=== PATIENT | female | born 1960 | race Caucasian/White ===

== ENCOUNTER 2024-02-12 11:39 | Inpatient (IN) | payer BC, SELFPAY ==
[2024-02-12] VITALS (12 sets, daily range): BP systolic 109–156; BP diastolic 48–72; BMI 35.9; BMI 35.5
[2024-02-12 05:35] LABS: % Basophils 0.2 % (0-2); % Eosinophils 0.7 % (0-6); % Immature Granulocytes 0.3 % (0-0.5); % Lymphocytes 7.5 % (20.5-51.1); % Monocytes 1.9 % (1.7-9.3); % Neutrophils 89.4 % (42.2-75.2); Absolute Eosinophils 0.1 10^3/uL (0-0.7); Absolute Lymphocytes 0.9 10^3/uL (1.2-3.4); Absolute Monocytes 0.2 10^3/uL (0.1-0.6); Absolute Neutrophils 10.8 10^3/uL (1.4-6.5); Hematocrit 42.8 % (37.0-47.0); Hemoglobin 14.5 g/dL (12.0-16.0); Mean Corp Hgb Conc. 33.9 g/dL (33.0-37.0); Mean Corpuscular Hgb 29.4 pg (27.0-31.0); Mean Corpuscular Volume 86.6 fL (81.0-99.0); Mean Platelet Volume 9.4 fL (7.4-10.4); Nucleated Red Blood Cells % 0 %; Platelet Count 211 10^3/uL (130-400); Red Blood Cell Count 4.94 10^6/uL (4.20-5.40); Red Cell Dist. Width 13.7 % (11.5-14.5); White Blood Cell Count 12.1 10^3/uL (4.8-10.8)
[2024-02-12] MEDS: MAALOX 40 PO (05:43)
[2024-02-12] MEDS: PROTONIX IV 40 MG IV (05:44)
[2024-02-12 06:04] LABS: ALT (SGPT) 438 U/L (0-35); AST (SGOT) 738 U/L (14-36); Albumin 4.3 g/dl (3.5-5.0); Alkaline Phosphatase 191 U/L (38-126); Blood Urea Nitrogen 22 mg/dl (7-17); Calcium 9.6 mg/dl (8.4-10.2); Carbon Dioxide 29 mmol/L (22-30); Chloride 104 mmol/L (98-107); Estimated Creatinine Clearance 77 ml/min; Glucose 115 mg/dl (70-99); Lipase 122 U/L (23-300); Potassium 4.4 mmol/L (3.5-5.1); Sodium 143 mmol/L (135-145); Total Bilirubin 2.2 mg/dl (0.2-1.3); Total Protein 7.1 g/dl (6.3-8.2); eGFR > 60.00
--- NOTE | 2024-02-12 06:11 | ED.GENMED ---
History of Present Illness
<Raven Livingston DO - Last Filed: 02/12/24 06:34>
General
Chief Complaint: Chest Pain
Source: patient and previous hospital records (Hospitalization 1 year ago for acute diverticulitis with sepsis.)
Exam Limitations: none
Time Seen by Provider: 02/12/24 05:09
Nursing documentation reviewed up to this point in time: agreed with
History of Present Illness
History of Present Illness:
This is a 63-year-old woman with history of diverticulitis having 1 episode of acute sigmoid diverticulitis requiring overnight hospitalization 1 year ago. She has remote history of cholecystectomy.
She presents with abrupt onset of lower substernal/epigastric pain that woke her from sleep at 330 this morning. Epigastric pain radiates to her back and mildly to her neck accompanied with nausea. She had very similar episode of epigastric and
lower substernal pain waking her from sleep 24 hours ago. At that time she took a dose of antacid as well as ibuprofen. Questionable mild relief but she admits to overall not feeling well throughout the day yesterday. She has not had a fever nor
chills, no cough no shortness of breath.
She admits to rare but much milder similar episodes in the past but not prolonged as yesterday and this morning.
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
Past History
<Raven Livingston DO - Last Filed: 02/12/24 06:34>
Past History
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
ED Past Surgical History: Cholecystectomy, and Other (Breast lump removal)
Social History
Tobacco: Non-smoker
Alcohol: None
Drug: None
Personal:
Living: with family
Employment: Employed
Family History
Family History: CAD (Father with history of CAD/MIs in his 40s)
Phy Exam
<Raven Livingston DO - Last Filed: 02/12/24 06:34>
Physical Exam
Physical Exam:
GENERAL: 63-year-old woman appears her stated age, awake and alert, appears in mild distress related to pain. Easily communicative.
EYE: anicteric
NECK: Supple, nontender, no meningismus, no significant adenopathy.
ENT: oral mucosa is moist. No rhinorrhea.
CARDIAC: Regular rate and rhythm. no murmur.
LUNGS: Clear breath sounds bilaterally, no acute respiratory distress, no wheezes/rales/rhonchi
ABDOMEN: Soft, nondistended, moderate tenderness epigastric region as well as mild tenderness right upper quadrant, no r/g, no cvat. normoactive BS.
NEUROLOGICAL: Alert and oriented x3, no focal neuro deficits.
SKIN: Warm and dry, normal color, skin intact. No rash.
MUSCULOSKELETAL: No C/C/E. peripheral pulses are full and equal b/l. No palpable tenderness.
PSYCH: Normal and appropriate interaction.
Scores
<Raven Livingston DO - Last Filed: 02/12/24 06:34>
Heart Score for Chest Pain Patients
STEMI patient?: No
History: Slightly or Non-Suspicious
ECG: Normal
Age: >45 - <65 years
Risk Factors: No Risk Factors
Troponin: </= Normal Limit
Heart Score for Chest Pain Patients: 1
Heart Score Risk: 2.5% MACE over next 6 weeks
<Deandre Silverman DO - Last Filed: 02/12/24 09:48>
Heart Score for Chest Pain Patients
Heart Score for Chest Pain Patients: 1
Heart Score Risk: 2.5% MACE over next 6 weeks
Course
<Raven Livingston DO - Last Filed: 02/12/24 06:34>
Orders/Labs/Results
Orders:
Orders
02/12/24 04:56
Electrocardiogram (*1) Urgent
Reason for Study: Chest Pain
EKG- Treatment ONCE
02/12/24 05:25
Complete Blood Count/With Diff Urgent
Comprehensive Metabolic Panel Urgent
Lipase Urgent
Troponin I Urgent
02/12/24 05:28
Pantoprazole [Protonix IV] 40 mg IV NOW STA
02/12/24 05:41
Mag Hydrox/Al Hydrox/Simeth [Maalox] 30 ml .ROUTE .STK-MED ONE
Phenobarb/Hyoscy/Atropine/Scop [] 10 ml .ROUTE .STK-MED ONE
02/12/24 05:42
Mag Hydrox/Al Hydrox/Simeth [Maalox] 30 ml Phenobarb/Hyoscy/Atropine/Scop [] 10 ml PO NOW
02/12/24 06:12
0.9% Sodium Chloride 1000 ml [Nss] 1,000 ml IV BOLUS
HYDROmorphone [Dilaudid] 0.5 mg IV NOW STA
Ondansetron Injectable [Zofran] 4 mg IV NOW STA
02/12/24 06:16
US Abdomen Complete/Upper Urgent
Comment:
Reason For Exam: upper abd pain, elevated LFT's-hx florinda
02/12/24 07:56
Ketorolac [Toradol] 15 mg IV NOW STA
02/12/24 08:46
CT Abd/Pel (IV only)-DH only Urgent
Comment:
Reason For Exam: elev LFT pain RUQ
Abnormal Lab Results
02/12/24
05:25
WBC 12.1 H 10^3/uL
(4.8-10.8)
Absolute Neuts (auto) 10.8 H 10^3/uL
(1.4-6.5)
Absolute Lymphs (auto) 0.9 L 10^3/uL
(1.2-3.4)
Neutrophils % 89.4 H %
(42.2-75.2)
Lymphocytes % 7.5 L %
(20.5-51.1)
BUN 22 H mg/dl
(7-17)
Glucose 115 H mg/dl
(70-99)
Total Bilirubin 2.2 H mg/dl
(0.2-1.3)
AST 738 H* U/L
(14-36)
ALT 438 H U/L
(0-35)
Alkaline Phosphatase 191 H U/L
(38-126)
02/12/24 05:25
02/12/24 05:25
Vital Signs
Initial and Last Documented VS:
Initial Vital Signs
Pulse Resp Pulse Ox
82 20 100
02/12/24 05:03 02/12/24 05:03 02/12/24 05:03
Last Documented Vital Signs
Temp Pulse Resp BP Pulse Ox
98.9 F 81 17 138/54 88
02/12/24 05:09 02/12/24 06:00 02/12/24 06:00 02/12/24 07:30 02/12/24 07:08
<Deandre Silverman, - Last Filed: 02/12/24 09:48>
Orders/Labs/Results
Orders:
Orders
02/12/24 04:56
Electrocardiogram (*1) Urgent
Reason for Study: Chest Pain
EKG- Treatment ONCE
02/12/24 05:25
Complete Blood Count/With Diff Urgent
Comprehensive Metabolic Panel Urgent
Lipase Urgent
Troponin I Urgent
02/12/24 05:28
Pantoprazole [Protonix IV] 40 mg IV NOW STA
02/12/24 05:41
Mag Hydrox/Al Hydrox/Simeth [Maalox] 30 ml .ROUTE .STK-MED ONE
Phenobarb/Hyoscy/Atropine/Scop [] 10 ml .ROUTE .STK-MED ONE
02/12/24 05:42
Mag Hydrox/Al Hydrox/Simeth [Maalox] 30 ml Phenobarb/Hyoscy/Atropine/Scop [] 10 ml PO NOW
02/12/24 06:12
0.9% Sodium Chloride 1000 ml [Nss] 1,000 ml IV BOLUS
HYDROmorphone [Dilaudid] 0.5 mg IV NOW STA
Ondansetron Injectable [Zofran] 4 mg IV NOW STA
02/12/24 06:16
US Abdomen Complete/Upper Urgent
Comment:
Reason For Exam: upper abd pain, elevated LFT's-hx florinda
02/12/24 07:56
Ketorolac [Toradol] 15 mg IV NOW STA
02/12/24 08:46
CT Abd/Pel (IV only)-DH only Urgent
Comment:
Reason For Exam: elev LFT pain RUQ
Abnormal Lab Results
02/12/24
05:25
WBC 12.1 H 10^3/uL
(4.8-10.8)
Absolute Neuts (auto) 10.8 H 10^3/uL
(1.4-6.5)
Absolute Lymphs (auto) 0.9 L 10^3/uL
(1.2-3.4)
Neutrophils % 89.4 H %
(42.2-75.2)
Lymphocytes % 7.5 L %
(20.5-51.1)
BUN 22 H mg/dl
(7-17)
Glucose 115 H mg/dl
(70-99)
Total Bilirubin 2.2 H mg/dl
(0.2-1.3)
AST 738 H* U/L
(14-36)
ALT 438 H U/L
(0-35)
Alkaline Phosphatase 191 H U/L
(38-126)
02/12/24 05:25
02/12/24 05:25
Vital Signs
Initial and Last Documented VS:
Initial Vital Signs
Pulse Resp Pulse Ox
82 20 100
02/12/24 05:03 02/12/24 05:03 02/12/24 05:03
Last Documented Vital Signs
Temp Pulse Resp BP Pulse Ox
98.9 F 81 17 138/54 88
02/12/24 05:09 02/12/24 06:00 02/12/24 06:00 02/12/24 07:30 02/12/24 07:08
<Raven Livingston DO - Last Filed: 02/12/24 06:34>
MDM/Problems Addressed
Differential Diagnosis Includes:
Concern for acute GERD, gastritis, pancreatitis,common bile duct stone, ACS. No significant risk factors for ASCVD, no history of hypertension, aortic dissection is unlikely.
EKG is reassuring, no acute ST-T wave abnormalities and unchanged from previous.
Will check labs and trial an IV dose of Protonix and GI cocktail.
Will consider imaging depending on clinical course and lab results.
Chronic conditions affecting care: Previous abdomnial surgery (Cholecystectomy)
<Raven Livingston DO - Last Filed: 02/12/24 06:34>
*Pulse Oximetry
Patient hypoxic: no
*EKG
Interpreted by ED Provider?: Yes
Comparison EKG: no changes (Unchanged from previous October 2022)
Rate: normal
Rhythm: sinus
[employer]: normal axis
Interval: normal interval
QRS Pattern: normal QRS
Ischemia: non-specific ST changes
*Powertrain Design Engineer Interpretation
Rate: normal
Interpretation: normal
Rhythm: sinus
*Critical Care Note
Total Time (30-74mins, 75-104mins- exclusive of procedures): Not Applicable
<Deandre Silverman DO - Last Filed: 02/12/24 09:48>
*Radiology
Radiology exam reviewed: radiology read reviewed (Ultrasound showed possible dilated common bile duct. CT was rather unremarkable.)
<Raven Livingston DO - Last Filed: 02/12/24 06:34>
Update Note
Update Note:
Patient has had no relief after GI cocktail.
Labs are remarkable for significantly elevated LFTs as well as elevated T. bili 2.2. Elevated alkaline phosphatase 191. Normal lipase.
Troponin is normal.
Significant concern for common bile duct stone. Will medicate for pain and nausea, initiate IV fluids and will check abdominal ultrasound.
<Deandre Silverman DO - Last Filed: 02/12/24 09:48>
Update Note
Update Note:
Patient has had no relief after GI cocktail.
Labs are remarkable for significantly elevated LFTs as well as elevated T. bili 2.2. Elevated alkaline phosphatase 191. Normal lipase.
Troponin is normal.
Significant concern for common bile duct stone. Will medicate for pain and nausea, initiate IV fluids and will check abdominal ultrasound.
Unsure the etiology of the patient's elevated LFTs and bilirubin. Patient in all likelihood needs an MRI/MRCP. Patient will be admitted.
ED Attending Note
<Raven Livingston DO - Last Filed: 02/12/24 06:34>
-
Portions of this chart may have been created with voice recognition software.� Occasional wrong word or��sound alike� substitutions may have occurred due to the inherent limitations of voice recognition software.
Discharge Plan
Departure
Patient Disposition: Admit
Date of Disposition: 02/12/24
Time of Disposition: 09:46
Admit to: Med/Surg
Presentation/result/management discussed w/ accepting MD/DO: Hospitalist
Patient with high blood pressure during this ER visit?: No
Condition: Fair
Covid-19: Not Applicable
Discharge Problem:
Midepigastric abdominal pain, Elevated LFTs
Prescriptions:
No Action
cholecalciferol (vitamin D3) [Vitamin D3] 25 mcg (1,000 unit) Tablet
50 mcg PO DAILY
valacyclovir 500 mg Tablet
500 mg PO DAILY
Fish Oil Capsule
1,000 mg PO NOON
red yeast rice 600 mg Tablet
1,200 mg PO BID
Theragen Tablet
1 tab PO NOON
calcium carbonate [Tums] 200 mg calcium (500 mg) Tablet,Chewable
400 mg PO DAILYPRN PRN (Reason: INDIGESTION)
ibuprofen [Advil] 200 mg Tablet
200 mg PO Q6HPRN PRN (Reason: MILD PAIN)
Referrals:
Nhi Arana CRNP [Family Provider] -
Interventions
Interventions:
*Risk Screen - Suicide Last Done: 02/12/24 04:59
*General Assessment Last Done: 02/12/24 05:35
*Neglect/Abuse Screening Last Done: 02/12/24 04:59
ED- Fall Risk Assessment Last Done: 02/12/24 05:35
*ED COVID-19 Vaccine History Last Done: 02/12/24 04:59
ED- Cardiac Assessment Last Done: 02/12/24 05:35
Discharge Date and Time
Print Language: MALAYSIAN
[2024-02-12 06:13] LABS: Troponin I < 0.012 ng/ml
[2024-02-12] MEDS: ZOFRAN 4 MG IV ×2 (06:20→16:29)
[2024-02-12] MEDS: NSS 1000 IV ×2 (06:21→10:52)
[2024-02-12] MEDS: DILAUDID 0.5 MG IV (06:21)
[2024-02-12] MEDS: TORADOL 15 MG IV (08:14)
--- NOTE | 2024-02-12 11:08 | HPS.HSE ---
Family Physician
-
Family Physician: Nhi Arana
Chief Complaint
-
epigastric pain
History of Present Illness
63yo F with PMHx of fatty liver, choledocholithiasis s/p cholecystectomy came with 1 day of transverse abdominal pain radiating to lower chest and back. Pain appeared 1 day ago and then resolved, but later reoccured. Associated with diaphoresis.
found elevated LFT and bad.US with mild CBD dilation, however CT abd without acute hepatobiliary findings.
Medical History
Past Medical History
Past Medical History: Reports None
Past Surgical History: Reports Cholecystectomy
Social History
Tobacco: Non-smoker
Alcohol: None
Drug: None
Family History
Family History: Not pertinent
Allergies / Home Medications
Allergies reflects when Allergies were last updated in [facility].
Home Medications with original date entered in [facility]
Allergy/Medication List:
Allergies
Allergy/AdvReac Type Severity Reaction Status Date / Time
Sulfa (Sulfonamide Allergy Rash Verified 02/12/24 04:59
Antibiotics)
tramadol Allergy Unknown Verified 02/12/24 04:59
Home Medications
cholecalciferol (vitamin D3) 25 mcg (1,000 unit) tablet (Vitamin D3) 50 mcg PO DAILY Supplement 11/15/22
calcium carbonate (Tums) 400 mg PO DAILYPRN PRN INDIGESTION 02/12/24
ibuprofen 200 mg tablet (Advil) 200 mg PO Q6HPRN PRN MILD PAIN 02/12/24
omega-3 fatty acids 1,000 mg PO NOON 02/12/24
red yeast rice 600 mg tablet 1,200 mg PO BID 02/12/24
therapeutic multivitamin 1 tab PO NOON 02/12/24
valacyclovir 500 mg tablet 500 mg PO DAILY 02/12/24
Review of Systems
-
History Source: Patient
A 12 point ROS was completed and negative except as noted: Yes
Abdomen/GI: Reports See HPI
Physical Exam
Vital Signs
Vital Signs
Temp Pulse Resp BP Pulse Ox
98.9 F 81 17 138/54 88
02/12/24 05:09 02/12/24 06:00 02/12/24 06:00 02/12/24 07:30 02/12/24 07:08
Physical Exam
General: No Apparent Distress
HEENT: NormoCephalic, Anicteric and Moist mucous membranes
Respiratory: Clear
Cardiac: S1/S2 and Regular Rhythm; No Murmur
GI: Soft
Musculoskeletal: No Clubbing, No Cyanosis and No Edema
Skin: Warm; No Dry, Rash or Jaundice
Neuro: Awake, Alert, Oriented and AO x 3
Hematologic/Lymphatic: No Lymphadenopathy
Psych: Calm
Laboratory Results
-
02/12/24 05:25
02/12/24 05:25
Laboratory Results
Total Bilirubin 2.2 mg/dl (0.2-1.3) H 02/12/24 05:25
AST 738 U/L (14-36) H* 02/12/24 05:25
ALT 438 U/L (0-35) H 02/12/24 05:25
Alkaline Phosphatase 191 U/L (38-126) H 02/12/24 05:25
Troponin I < 0.012 ng/ml 02/12/24 05:25
Lipase 122 U/L (23-300) 02/12/24 05:25
Data Reviewed
-
CT Scan: Report Reviewed by me
Ultrasound: Report Reviewed by me
Lab Data: Labs Reviewed by me
Impression/Plan
-
A/P:
#Epigastric pain radiating to the chest, concern for choledocholithiasis, early cholangitis
#Elevated LFT
EKG without ST changes of TWI concerning for ACS. Reasonable to cont serial troponin
CTA chest stat to r/o aortic pathology due to atypical nature of the pain
Patient declined alcohol or tylenol usage
check hepatitis panel
NPO and advance diet as tolerated, IVF
MRCP
check CPK
Follow LFT
Zosyn
PPI
#L renal cysts
#R renal structure, exophitic, too small to characterize
MRI abd as outpatient
#DIverticulosis w/o diverticulitis
high fiber diet
DVT ppx on lovenox
Full code
I have spent at least 78min reviewing the chart, test results, communication with consultants and direct patient care
[2024-02-12 11:27] LABS: Creatine Phosphokinase 79 U/L (30-135)
--- NOTE | 2024-02-12 12:00 | CM ---
CM chart reviewed. Patient is here for possible choledocholithiasis, early cholangitis. Has elevated LFTs. CM introduced self and role. was also in room. Patient is independent. Does not own any DME. She drives. Patient's will
provide transportation once she is disharged from the hospital. Zosyn is ordered. She denied any +SDOHs. She is a retired [employer] teacher for 25 years. She lives in a multi-level home. 2 steps to enter. She uses [facility] as her PCP
and [facility] in [place] as her pharmacy.
ANTICIPATED DISCHARGE DISPO: Discharge to home with once medically cleared.
--- NOTE | 2024-02-12 13:24 | CON.GI ---
Addendum entered and electronically signed by Helena Estrada DO 02/12/24 15:34:
The patient was seen and examined by me independently in collaboration with the nurse practitioner.
Past medical history/social history/medications/allergies/family history reviewed.
Lab data and imaging data reviewed.
Guerita is a 63 y.o. female w/ pmhx uterina ca, hx cholecystectomy c/b retained CBD stone s/p CBD stent placement (presumably sphincterotomy as well) performed >20 years ago at [facility] for endometrial Ca, colon polyps, hx of diverticulitis admitted
with substernal chest pain and epigastric discomfort, labs significant for elevated liver enzymes and imaging concerning, but not definitive for choledocholithiasis. She was ruled out for ACS and PE with CT Angio.
WBC 12.1; bili 2.2, AST 738, ALT 438; alk phos 191; lipase 122
--CT A/P: prior cholecystectomy. No biliary ductal dilatation
--Abdominal US: Slightly distended common bile duct (8 mm), and questionable mild intrahepatic duct dilatation. Findings may be related to prior cholecystectomy.
--MRI/MRCP There is mild distention of the proximal to mid common bile duct. Distally, the common bile duct abruptly tapers. Cause for this is not identified on this exam. It could be related to postinflammatory or malignant distal common bile duct
stricture (particularly given the history of abnormal serum bilirubin). Approximate 5 tiny bright T2 signal foci in the pancreatic tail, possibly IPMN
I suspect she had a prior sphincterotomy at time of ERCP many years ago, so findings on MRI could reflect some papillary stenosis. Given discordant information on imaging but still obstructive pattern of liver enzymes, recommend proceeding with EUS
tomorrow, followed by ERCP, if choledocholithaisis is confirmed. Additionally, incidental finding of pancreatic cyst on MRI, likely IPMN, can be better evaluated at time of EUS.
Plan:
-NPO PMN, EUS +/- ERCP tomorrow with Dr. Torre
-okay for clears
-antiemetics, analgesia prn
Original Note:
Consultation
-
Date/Time Consultation Requested: 02/12/24 1030
Date/Time Consultation Performed: 02/12/24 1330
Requesting Provider: Hermelindo Ahumada MD
Performing Provider: FABRICE Freeman, Helena Estrada DO
Reason for Consultation: biliary obstruction
Medical History
Chief Complaint / HPI
Chief Complaint: chest/epigastric pain
History of Present Illness:
Pt is a 63yo with hx uterine CA, hyperlipidemia, prior florinda with post -op ERCP for stone removal with stent placement, ANDRIA for endometrial CA, colon polyps, diverticulitis presents with onset of chest/epigastric pain. On admission but WBC 12.1
with bili 2.2, AST 738, ALT 438, and alk phos 191. lipase 122 and neg troponin. On admission she had multiple diagnostic studies including CTA with no aneurysm or dissection, CT with diverticulosis, renal cysts no obstructive uropathy. US with
concern for CBD distention from prior colon CT no acute process or duct dilation and MRCP with distention of proximal to mid CBD distal tapering of unclear etiology. 5 tiny foci in panc tail concern for IPMN need follow up MRI 6-12 months.
At this time patient admits to onset of abdominal pain 02/10 in the a.m. She improved and then later that evening had mild recurrence. She then awoke at 3:30 AM on 02/11 with severe pain prompting evaluation in the emergency room. She admits
with the abdominal pain she also had some vomiting she was unclear if it was bilious. She was initially given Dilaudid without improvement. She was then given Toradol along with Zofran and antibiotics with some improvement. She otherwise denies
odynophagia GERD diarrhea constipation blood or black in stools. She does however admit to some change in the stool color which may have been related to contrast though the contrast was given IV she also admits some some back pain and tingling in
her arm.
Past Medical History
Past Medical History: Cancer (endometrial cancer), Hypercholesterolemia and Other (diverticulitis, cold sores with valtrex use, colon polyps, )
Past Surgical History: Cholecystectomy, , Gynecological (breast bx, D+C, ANDRIA) and Other (lumpectomy)
Social History
Tobacco: Non-Smoker
Alcohol: None
Drug: None
Personal:
Living: With Family
Employment: Retired
Family History
Family History: Reviewed & Not Pertinent
Allergies / Home Medications
Allergy/AdvReac Type Severity Reaction Status Date / Time
Sulfa (Sulfonamide Allergy Rash Verified 02/12/24 04:59
Antibiotics)
tramadol Allergy Unknown Verified 02/12/24 04:59
�Medication �Instructions �Recorded
cholecalciferol (vitamin D3) 25 50 mcg PO DAILY Supplement 11/15/22
mcg (1,000 unit) tablet (Vitamin
D3)
calcium carbonate (Tums) 400 mg PO DAILYPRN PRN INDIGESTION 02/12/24
ibuprofen 200 mg tablet (Advil) 200 mg PO Q6HPRN PRN MILD PAIN 02/12/24
omega-3 fatty acids 1,000 mg PO NOON 02/12/24
red yeast rice 600 mg tablet 1,200 mg PO BID 02/12/24
therapeutic multivitamin 1 tab PO NOON 02/12/24
valacyclovir 500 mg tablet 500 mg PO DAILY 02/12/24
Review of Systems
-
Constitutional: Reports Weight Loss ( 35 lbs intentional loss ) and Night Sweats
EENT: Reports No Symptoms
Respiratory: Reports No Symptoms
Cardiac: Reports No Symptoms
Abdomen/GI: Reports Abdominal Pain, Nausea and Vomiting
: Reports No Symptoms
Musculoskeletal: Reports No Symptoms
Skin: Reports No Symptoms
Neurological: Reports No Symptoms
Endocrine: Reports No Symptoms
Hematologic/Lymphatic: Reports No Symptoms
Vital Signs
Temp Pulse Resp BP Pulse Ox
98.9 F 91 19 115/48 91
02/12/24 05:09 02/12/24 08:30 02/12/24 08:30 02/12/24 08:30 02/12/24 08:30
Physical Exam
Exam
General: Well Developed, Well Nourished and No Apparent Distress
HEENT: Other (minimal jaundice)
Respiratory: Clear
Cardiac: Regular Rhythm
GI: Soft, Non Distended and Tender (minimal )
Musculoskeletal: No Clubbing and No Cyanosis
Skin: Warm and Dry
Neuro: Awake, Alert and AO x 3
Psych: Calm
Results
WBC 12.1 10^3/uL (4.8-10.8) H 02/12/24 05:25
Hgb 14.5 g/dL (12.0-16.0) 02/12/24 05:25
Hct 42.8 % (37.0-47.0) 02/12/24 05:25
MCV 86.6 fL (81.0-99.0) 02/12/24 05:25
Plt Count 211 10^3/uL (130-400) 02/12/24 05:25
Absolute Neuts (auto) 10.8 10^3/uL (1.4-6.5) H 02/12/24 05:25
Sodium 143 mmol/L (135-145) 02/12/24 05:25
Potassium 4.4 mmol/L (3.5-5.1) 02/12/24 05:25
Chloride 104 mmol/L (98-107) 02/12/24 05:25
Carbon Dioxide 29 mmol/L (22-30) 02/12/24 05:25
BUN 22 mg/dl (7-17) H 02/12/24 05:25
Creatinine 0.8 mg/dL (0.6-1.0) 02/12/24 05:25
Calcium 9.6 mg/dl (8.4-10.2) 02/12/24 05:25
Total Bilirubin 2.2 mg/dl (0.2-1.3) H 02/12/24 05:25
AST 738 U/L (14-36) H* 02/12/24 05:25
ALT 438 U/L (0-35) H 02/12/24 05:25
Alkaline Phosphatase 191 U/L (38-126) H 02/12/24 05:25
Lipase 122 U/L (23-300) 02/12/24 05:25
Diagnostic Image Results:
02/12/24 CT Abd/Pel (IV only)-DH only
No acute inflammatory process within the abdomen or pelvis.
Diverticulosis without acute diverticulitis. No bowel obstruction.
Stable renal cysts. No obstructive uropathy.
Prior cholecystectomy.
Mild hepatomegaly.
No intrahepatic or extrahepatic biliary ductal dilatation, as suggested on ultrasound.
02/12/24 US Abdomen Complete/Upper
Slightly distended common bile duct (8 mm), and questionable mild intrahepatic duct dilatation. Findings may be related to prior cholecystectomy. CT may be considered as initial step for further evaluation, followed by MRCP if indicated.
02/12/24 MRCP
There is mild distention of the proximal to mid common bile duct. Distally, the common bile duct abruptly tapers. Cause for this is not identified on this exam. It could be related to postinflammatory or malignant distal common bile duct stricture
(particularly given the history of abnormal serum bilirubin). Consider ERCP for further evaluation
Approximate 5 tiny bright T2 signal foci in the pancreatic tail. These are probably related to intraductal papillary mucinous neoplasia. Follow-up MRI abdomen/MRCP in 6-12 months recommended for reevaluation
No acute inflammatory process in the abdomen
02/12/24 CT Chest Angio W/wo Iv Contras
No aortic aneurysm or dissection.
Prior GI Procedures:
EGD: ? years ago wtih ERCP
ERCP 25 years ago for CBD stone
Colonoscopy: 12/2022- - One 7 mm polyp in the proximal sigmoid colon,
removed with a hot snare. Resected and retrieved.
- One 10 mm polyp in the distal sigmoid colon, removed
with a hot snare. Resected and retrieved.
- Diverticulosis in the sigmoid colon and in the
descending colon.
- Internal hemorrhoids.
- The examination was otherwise normal.
bx inflammatory polyp
Assessment / Plan
-
Pt is a 63yo with hx uterine CA, hyperlipidemia, prior florinda with post -op ERCP for stone removal with stent placement, ANDRIA for endometrial CA, colon polyps, diverticulitis presents with onset of chest/epigastric pain. On admission but WBC 12.1
with bili 2.2, AST 738, ALT 438, and alk phos 191. lipase 122 and neg troponin. On admission she had multiple diagnostic studies including CTA with no aneurysm or dissection, CT with diverticulosis, renal cysts no obstructive uropathy. US with
concern for CBD distention from prior colon CT no acute process or duct dilation and MRCP with distention of proximal to mid CBD distal tapering of unclear etiology. 5 tiny foci in panc tail concern for IPMN need follow up MRI 6-12 months.
-epigastric pain with increased LFT's
-MRCP with distention of proximal to mid CBD with distal tapering of unclear etiology
-tiny foci in panc tail ? IPMN
-hx florinda 25 years ago with post-op ERCP with stone removal and stents
other med problems:
-endometrial CA s/p hysterectomy
-hx colon polyps- inflammatory
-diverticulosis/diverticulitis
PLAN:
etiology of epigastric pain with rise in LFT's related to noted distal CBD narrowing- ? passed stone vs stricture with prior ERCP/stent, vs mass as MR done without contrast only vs other
reviewed with Dr. Estrada for EUS +/- ERCP
will need follow up MRI for multiple IPMN's and also for EUS tomorrow
trend labs
pain control
clear diet today- NPO in AM
hold lovenox add compression stocking
will follow
-
-
Thank you for consultation and allowing me to participate in the patient's care. Please call the artist relationship manager GI physician during the after hours with any questions or concerns.
[2024-02-12] MEDS: ZOSYN 50 IV ×2 (14:33→20:39)
[2024-02-12] MEDS: TORADOL 10 MG IV ×2 (16:29→22:38)
[2024-02-12 17:19] LABS: Urine Albumin Trace (Neg - Trace); Urine Bilirubin 1+ (Negative); Urine Character Clear (Clear); Urine Color Yellow; Urine Glucose Negative (Negative); Urine Ketone Negative (Negative); Urine Leukocyte Negative (Negative); Urine Nitrite Negative (Negative); Urine Occult Blood Negative (Negative); Urine Urobilinogen Negative (Neg - 1+)
[2024-02-12 18:20] LABS: Hepatitis B Surface Antigen Negative (Negative)
[2024-02-12 18:39] LABS: Hepatitis B Core Ab, Total Negative (Negative); Hepatitis B Surface Antibody Negative; Hepatitis C Antibody Negative (Negative)
[2024-02-12 18:57] LABS: Hepatitis A Antibody, Total Negative (Negative)
[2024-02-12] MEDS: TIGAN 200 MG IM (22:55)
[2024-02-13] VITALS (9 sets, daily range): BP systolic 108–150; BP diastolic 61–96
[2024-02-13] MEDS: ZOSYN 50 IV ×4 (02:34→21:12)
[2024-02-13] MEDS: NSS 1000 IV (02:40)
[2024-02-13 05:34] LABS: % Basophils 0.2 % (0-2); % Eosinophils 2.2 % (0-6); % Immature Granulocytes 0.2 % (0-0.5); % Lymphocytes 9.2 % (20.5-51.1); % Monocytes 7.4 % (1.7-9.3); % Neutrophils 80.8 % (42.2-75.2); Absolute Eosinophils 0.2 10^3/uL (0-0.7); Absolute Lymphocytes 0.9 10^3/uL (1.2-3.4); Absolute Monocytes 0.7 10^3/uL (0.1-0.6); Hematocrit 36.7 % (37.0-47.0); Hemoglobin 12.4 g/dL (12.0-16.0); Mean Corp Hgb Conc. 33.8 g/dL (33.0-37.0); Mean Corpuscular Hgb 29.4 pg (27.0-31.0); Mean Platelet Volume 9.5 fL (7.4-10.4); Nucleated Red Blood Cells % 0 %; Platelet Count 181 10^3/uL (130-400); Red Blood Cell Count 4.22 10^6/uL (4.20-5.40); Red Cell Dist. Width 13.9 % (11.5-14.5)
[2024-02-13 05:45] LABS: PT 15.7 Sec (11.4-14.6)
[2024-02-13 07:00] LABS: ALT (SGPT) 444 U/L (0-35); AST (SGOT) 354 U/L (14-36); Albumin 3.4 g/dl (3.5-5.0); Alkaline Phosphatase 213 U/L (38-126); Blood Urea Nitrogen 14 mg/dl (7-17); Calcium 8.6 mg/dl (8.4-10.2); Carbon Dioxide 22 mmol/L (22-30); Chloride 106 mmol/L (98-107); Estimated Creatinine Clearance 76 ml/min; Glucose 89 mg/dl (70-99); Sodium 141 mmol/L (135-145); Total Bilirubin 5.7 mg/dl (0.2-1.3); Total Protein 6.2 g/dl (6.3-8.2); eGFR > 60.00
--- NOTE | 2024-02-13 12:00 | W.PN.HOSP.TC ---
Today's Communication/Plan
-
See PN
Assessment / Plan
Assessment / Plan
63yo F with PMHx of fatty liver, choledocholithiasis s/p cholecystectomy came with 1 day of transverse abdominal pain radiating to lower chest and back. 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
A/P:
#Epigastric pain radiating to the chest, concern for choledocholithiasis, early cholangitis
#Elevated LFT
#IPMN
#CBD stricture/obstruction
Follow LFT
Zosyn, however low suspiscion for infection, plan to stop after EUS/ERCP
PPI
GI consult
#L renal cysts
#R renal structure, exophitic, too small to characterize
MRI abd as outpatient
#DIverticulosis w/o diverticulitis
high fiber diet
DVT ppx on SCDs
Full code
I have spent at least 58min reviewing the chart, test results, communication with consultants and direct patient care
Anticipated Discharge: 24 - 48 hours
Subjective/Interval History
-
Date of Service: February 13, 2024
Objective Data
-
Labs:
Laboratory Results
02/13/24
05:22
WBC 10.0
Hgb 12.4
Hct 36.7 L
Plt Count 181
PT 15.7 H
INR 1.20
Sodium 141
Potassium 4.0
Chloride 106
Carbon Dioxide 22
BUN 14
Creatinine 0.8
Glucose 89
Calcium 8.6
Total Bilirubin 5.7 H D
AST 354 H
ALT 444 H
Alkaline Phosphatase 213 H
Vital Signs:
Vital Signs
Temp Pulse Resp BP Pulse Ox
98.0 F 76 17 136/67 97
02/13/24 11:03 02/13/24 11:03 02/13/24 11:03 02/13/24 11:03 02/13/24 11:03
I&O
02/12/24 02/13/24 02/14/24
06:59 06:59 06:59
Intake Total 1080 / 1080
Balance 1080 / 1080
Review of Systems
-
History Source: Patient
All other systems: Reviewed and negative
Physical Exam
-
General: No Apparent Distress
HEENT: Normocephalic
Respiratory: Clear to Auscultation
GI: Soft, Nontender and Nondistended
Musculoskeletal: No Clubbing, No Cyanosis and No Edema
Skin: Warm
Neuro: Awake, Alert, Oriented and AO x 3
Psych: Calm
[2024-02-13] MEDS: NSS IV (18:36)
[2024-02-14] MEDS: ZOSYN 50 IV (02:59)
[2024-02-14 07:06] LABS: ALT (SGPT) 329 U/L (0-35); AST (SGOT) 175 U/L (14-36); Albumin 3.7 g/dl (3.5-5.0); Alkaline Phosphatase 221 U/L (38-126); Direct Bilirubin 3.7 mg/dl (0.0-0.4); Total Bilirubin 4.3 mg/dl (0.2-1.3); Total Protein 6.5 g/dl (6.3-8.2)
[2024-02-14 07:15] VITALS: BP 132/63
--- NOTE | 2024-02-14 10:47 | PTCARENOTE ---
Assumed care of pt from previous nurse. Pt denies pain, no noted nausea or vomiting, denies abdominal tenderness, tolerating diet with out issue. Pt call [facility] is within reach, pt rings [facility]. will cont to monitor
--- NOTE | 2024-02-14 10:54 | W.PN.HOSP.TC ---
Today's Communication/Plan
-
pending further recommendations from GI
Assessment / Plan
Assessment / Plan
63yo F with PMHx of fatty liver, choledocholithiasis s/p cholecystectomy came with 1 day of transverse abdominal pain radiating to lower chest and back. 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
A/P:
#Epigastric pain radiating to the chest, concern for choledocholithiasis, early cholangitis
#Elevated LFT
#IPMN on MRI
#CBD stricture/obstruction ruled out
Follow LFT
Abx stopped with no suspicion for infection
PPI
GI consult: s/p EUS on 02/14/24 - no pancreatic, biliary or liver lesions seen
Still recommended MRI in 6months for pancreas and R renal
#L renal cysts
#R renal structure, exophytic, too small to characterize
MRI abd as outpatient
#Diverticulosis w/o diverticulitis
high fiber diet
DVT ppx on SCDs
Full code
I have spent at least 58min reviewing the chart, test results, communication with consultants and direct patient care
Anticipated Discharge: Within 24 hours
Subjective/Interval History
-
Date of Service: February 14, 2024
Objective Data
-
Labs:
Laboratory Results
02/14/24
05:59
Total Bilirubin 4.3 H
AST 175 H
ALT 329 H
Alkaline Phosphatase 221 H
Vital Signs:
Vital Signs
Temp Pulse Resp BP Pulse Ox
97.8 F 61 16 132/63 96
02/14/24 07:15 02/14/24 07:15 02/14/24 07:15 02/14/24 07:15 02/14/24 08:00
I&O
02/13/24 02/14/24 02/15/24
06:59 06:59 06:59
Intake Total 1080 / 1080 680 / 680
Balance 1080 / 1080 680 / 680
Review of Systems
-
History Source: Patient
All other systems: Reviewed and negative
Physical Exam
-
General: No Apparent Distress
HEENT: Normocephalic, Atraumatic and Other (icteric sclera)
GI: Soft, Nontender and Nondistended
Neuro: Awake, Alert, Oriented and AO x 3
Psych: Calm
--- NOTE | 2024-02-14 11:57 | W.PN.GI.CBS2 ---
Today's Communication / Plan
-
Okay for discharge with labs next week as an outpatient. They will be sent to Dr. Mills. My office will call her to set up a follow-up outpatient visit
Assessment / Plan
-
Pt is a 63yo with hx uterine CA, hyperlipidemia, prior florinda with post -op ERCP for stone removal with stent placement, ANDRIA for endometrial CA, colon polyps, diverticulitis presents with onset of chest/epigastric pain. On admission but WBC 12.1
with bili 2.2, AST 738, ALT 438, and alk phos 191. lipase 122 and neg troponin. On admission she had multiple diagnostic studies including CTA with no aneurysm or dissection, CT with diverticulosis, renal cysts no obstructive uropathy. US with
concern for CBD distention from prior colon CT no acute process or duct dilation and MRCP with distention of proximal to mid CBD distal tapering of unclear etiology. 5 tiny foci in panc tail concern for IPMN need follow up MRI 6-12 months.
-epigastric pain with increased LFT's
-MRCP with distention of proximal to mid CBD with distal tapering of unclear etiology
-tiny foci in panc tail ? IPMN
-hx florinda 25 years ago with post-op ERCP with stone removal and stents
other med problems:
-endometrial CA s/p hysterectomy
-hx colon polyps- inflammatory
-diverticulosis/diverticulitis
02/13/2024 upper EUS no abnormality of the pancreatic head body or tail. Pancreatic duct measured up to 3 mm which is normal. No significant endoscopic abnormality of the common bile duct that was maximum 6 mm. No stones or sludge identified. No
significant abnormality. Normal-appearing ampulla with no significant pathology. No significant pathology of the left lobe of the liver. No specimens collected.
PLAN:
02/14/24 -patient's pain stopped before the EUS was done. EUS unremarkable
--Her LFT pattern is improving. Her clinical presentation and lab values sounded very much like a retained stone
-- ok for discharge
-- She follows with Dr. Mills as an outpatient. I sent him a message. Also I sent labs to be done at [facility] next week which she is aware of and we will have her follow-up as an outpatient
--I reviewed her LFT panel from October 2023 which showed normal liver enzymes
--Discussed with primary team
Subjective
Subjective
Date of Service: February 14, 2024
She feels 100% better. Tolerated her regular diet very well and wants to go home
Objective
Data Reviewed
Laboratory Data:
Laboratory Results
02/13/24 05:22
02/13/24 05:22
Laboratory Results
PT 15.7 Sec (11.4-14.6) H 02/13/24 05:22
INR 1.20 02/13/24 05:22
Magnesium 2.0 mg/dl (1.6-2.3) 02/13/24 05:22
Total Bilirubin 4.3 mg/dl (0.2-1.3) H 02/14/24 05:59
AST 175 U/L (14-36) H 02/14/24 05:59
ALT 329 U/L (0-35) H 02/14/24 05:59
Alkaline Phosphatase 221 U/L (38-126) H 02/14/24 05:59
Lipase 122 U/L (23-300) 02/12/24 05:25
Vital Signs and I&O:
Vital Signs
Temp Pulse Resp BP Pulse Ox
97.8 F 61 16 132/63 96
02/14/24 07:15 02/14/24 07:15 02/14/24 07:15 02/14/24 07:15 02/14/24 08:00
I&O
02/13/24 02/14/24 02/15/24
06:59 06:59 06:59
Intake Total 1080 / 1080 680 / 680
Balance 1080 / 1080 680 / 680
Physical Exam
Physical Exam
HEENT: Anicteric (Mildly icteric)
Pulmonary: Clear
GI: Soft, Non Distended and Non Tender
Extremities: No Edema
Neuro: Non Focal
--- NOTE | 2024-02-14 12:16 | W.DCSUMMARY ---
Discharge Summary
Discharge Data
Date of Admission: 02/12/24
Date of Discharge: 02/14/24
-
Pending Results: No
Hospital Course
63yo F with PMHx of fatty liver, choledocholithiasis s/p cholecystectomy came with 1 day of transverse abdominal pain radiating to lower chest and back. 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 Possibly passed the
stone. GI will follow LFT in 1 week as outpatient. Also recommended MRI abd in 6mo for pancreas and R renal structure - patient verbalized understanding and will follow for it with her PCP. Medically stable for d/c
I have spent at least 58min reviewing the chart, test results, communication with consultants and direct patient care
Patient was managed for:
#Epigastric pain radiating to the chest, concern for choledocholithiasis, early cholangitis
#Elevated LFT
#IPMN on MRI
#CBD stricture/obstruction ruled out
#L renal cysts
#R renal structure, exophytic, too small to characterize
#Diverticulosis w/o diverticulitis
Discharge Plan
-
Patient Disposition: Home (Routine Discharge)
Discharge Diagnosis/Procedures: CHoledocholithiasis
Diet: Low Fat
Activity: As tolerated
Driving Restrictions: As prior to admission
Blood Work: Liver function next week
Activity Restrictions/Additional Instructions:
Please schedule abdominal MRI in 3 mo with your PCP to evaluate R renal structure and pancreas
Referrals:
Nhi Arana CRNP [Family Provider] -
Maranda Baltazar DO [Active] - in less than 1 week
Prescriptions:
Continued
cholecalciferol (vitamin D3) [Vitamin D3] 25 mcg (1,000 unit) Tablet
50 mcg PO DAILY
valacyclovir 500 mg Tablet
500 mg PO DAILY
omega-3 fatty acids Capsule
1,000 mg PO NOON
red yeast rice 600 mg Tablet
1,200 mg PO BID
therapeutic multivitamin Tablet
1 tab PO NOON
calcium carbonate [Tums] 200 mg calcium (500 mg) Tablet,Chewable
400 mg PO DAILYPRN PRN (Reason: indigestion)
ibuprofen [Advil] 200 mg Tablet
200 mg PO Q6HPRN PRN (Reason: mild pain )
Discharge Orders:
Discharge Patient (As Directed); Ordered 02/14/24
Ordered By: Hermelindo Ahumada
Discharge Date and Time
Print Language: [place]
--- NOTE | 2024-02-14 12:24 | CM ---
Patient who is s/p EUS.
Met with patient who was preparing for d/c. The patient says she feels ready to go home today. Her sister or will provide transport home today.
No CM d/c needs identified.
Plan home today.
[2024-02-14 12:55] VITALS: BP 127/67
== END 2024-02-14 13:01 | disposition home or self-care (01) | DRG 446 ==
LOC: 3 WEST ACU 11:39
PROVIDERS: Internal Medicine Gastroenterology; Nurse Practitioner Adult Health; ADMITTING PHYSICIAN Internal Medicine; CONSULT PHYSICIAN Internal Medicine; EMERGENCY PHYSICIAN Emergency Medicine; FAMILY PHYSICIAN Nurse Practitioner Adult Health
PROC: 0DJ08ZZ Inspection of Upper Intestinal Tract, Via Natural or Artificial Opening Endoscopic (ICD-10-PCS; 2024-02-13)
DX: K80.50 Calculus of bile duct without cholangitis or cholecystitis without obstruction (principal); K76.0 Fatty (change of) liver, not elsewhere classified; K83.8 Other specified diseases of biliary tract; B00.1 Herpesviral vesicular dermatitis; E78.00 Pure hypercholesterolemia, unspecified; K64.8 Other hemorrhoids; R79.89 Other specified abnormal findings of blood chemistry; N28.1 Cyst of kidney, acquired; Z79.899 Other long term (current) drug therapy; Z87.19 Personal history of other diseases of the digestive system; Z86.0100 Personal history of colon polyps, unspecified; Z90.49 Acquired absence of other specified parts of digestive tract; Z90.710 Acquired absence of both cervix and uterus; Z85.42 Personal history of malignant neoplasm of other parts of uterus; Z88.2 Allergy status to sulfonamides; Z88.5 Allergy status to narcotic agent
CPT/HCPCS: 71275; 74177; 74181; 76700; 80053; 80076; 81003; 82550; 83690; 83735; 84443; 84484; 85025; 85610; 86704; 86706; 86708; 86803; 87070; 87340; 93005; 96361; 96374; 96375; 99285; Q9967

== ENCOUNTER 2024-10-26 11:04 | Inpatient (IN) | payer BC, SELFPAY ==
[2024-10-25] VITALS (11 sets, daily range): BP systolic 95–169; BP diastolic 57–88; BMI 37.9
--- NOTE | 2024-10-25 09:38 | ED.GENMED ---
History of Present Illness
General
Chief Complaint: Abdominal Symptoms
Source: patient
Exam Limitations: none
Time Seen by Provider: 10/25/24 09:35
Nursing documentation reviewed up to this point in time: agreed with
History of Present Illness
History of Present Illness:
Patient is a 64-year-old female with past medical history of fatty liver choledocholithiasis status post cholecystectomy presents to the ER for evaluation. Patient started this a.m. with nausea and epigastric pain. She reports she has had these
flareups multiple times in the past in fact she is followed by GI here Dr. Mills. She is scheduled for an MRI with contrast to see what is going on but not until October.
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
Lois and of his appear she is here for
Past History
Past History
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
ED Past Surgical History: Cholecystectomy, and Other (Breast lump removal)
Social History
Tobacco: Non-smoker
Alcohol: None
Drug: None
Personal:
Living: with family
Employment: Employed
Family History
Family History: CAD (Father with history of CAD/MIs in his 40s)
Phy Exam
General Physical Exam
General Presentation: no apparent distress
General age: appears stated age
General Skin: warm and dry
General Habitus: normal
General Mental: alert
General Hydration: appears well hydrated
Cardiovascular Exam
Cardiovascular Exam: regular rate/rhythm, no murmur and normal peripheral pulses
Pulmonary Exam
Pulmonary Exam: lungs clear and no respiratory distress
Gastrointestinal Exam
Gastrointestinal Exam: soft and other (mild upper abd tenderness)
Neurological Exam
Neurological Exam: alert and oriented x3
Musculoskeletal Exam
Musculoskeletal Exam: full ROM
Skin Exam
Skin Exam: normal color and warm/dry
Psychiatric Exam
Psychiatric Exam: normal mood/affect
Course
Orders/Labs/Results
Orders:
Orders
10/25/24 09:01
EKG [Electrocardiogram (*1)] Urgent
Reason for Study: Abdominal Pain
EKG- Treatment ONCE
10/25/24 09:57
IV Insert/Care/Rem.- Treatment PRN
10/25/24 Lunch
Clear Liquid
At Your Request: Full Participation
10/25/24 10:12
Complete Blood Count/With Diff Urgent
Comprehensive Metabolic Panel Urgent
Lipase Urgent
10/25/24 11:24
Urinalysis Reflex To Culture Urgent
Date Specimen was Collected: 10/25/24
Time Specimen was Collected: 11:20
10/25/24 11:32
Famotidine [Pepcid] 20 mg IV NOW STA
Ondansetron Injectable [Zofran] 4 mg IV NOW STA
10/25/24 11:44
Mag Hydrox/Al Hydrox/Simeth [Maalox] 30 ml Phenobarb/Hyoscy/Atropine/Scop [] 10 ml PO NOW
Pantoprazole [Protonix IV] 40 mg IV NOW STA
10/25/24 11:47
Mag Hydrox/Al Hydrox/Simeth [Maalox] 30 ml .ROUTE .STK-MED ONE
Phenobarb/Hyoscy/Atropine/Scop [] 10 ml .ROUTE .STK-MED ONE
10/25/24 13:26
Ketorolac [Toradol] 15 mg IV NOW STA
10/25/24 13:32
MR Abdomen W/o & W Contrast Urgent
Comment: MRCP
Reason For Exam: upper abd pain elevated lfts
OK for patient to be off Cardiac Monitoring for MRI: Yes
Recent pill cam endoscopy?: No
10/25/24 15:53
HYDROmorphone [Dilaudid] 1 mg IV NOW STA
10/25/24 15:54
0.9% Sodium Chloride 1000 ml [Nss] 1,000 ml IV BOLUS
10/25/24 15:57
Ondansetron Injectable [Zofran] 4 mg .ROUTE .STK-MED ONE
10/25/24 15:58
Ondansetron Injectable [Zofran] 4 mg IV NOW STA
10/25/24 18:07
Admit/Transfer Patient As Directed
Co-Sign Provider:
Level of Care: Observation services
Assign to:: Medical/Surgical
Physician / Group: [facility]
Diagnosis: upper abdominal pain, nausea, chills
PRN Pain Medication Management As Directed
May give lesser potent ordered pain med per pt: Yes
preference::
Protocol:: Medication orders for pain may be administered in a
manner that supports deferring to patient preference
when the pt is:
- Requesting an ordered lesser potent pain medication.
Least to most potent pain medications are defined
as: acetaminophen < NSAID < tramadol < opioids
(morphine, oxycodone, hydromorphone).
- Requesting a lesser dose of the same medication IF
ORDERED.
- Requesting a less intrusive route of administration
if both routes are prescribed by the provider (PO <
IV).
10/25/24 18:08
Code Status As Directed
Resuscitation Status: Full Code
10/25/24 18:27
Blood Culture Q30M
CRISTIANO Source: Blood/Venous
Specimen Description:
Blood Culture Q30M
CRISTIANO Source: Blood/Venous
Specimen Description:
10/25/24 18:44
Acetaminophen [Tylenol] 650 mg PO Q4HPRN PRN
Bisacodyl [Dulcolax] 10 mg RECTAL [id number] PRN
Docusate W/Senna [Senokot-S] 1 tablet PO BIDPRN PRN
HYDROmorphone [Dilaudid] 0.5 mg IV Q4HPRN PRN
Ketorolac [Toradol] 10 mg IV Q6HPRN PRN
Ondansetron Injectable [Zofran] 4 mg IV Q6HPRN PRN
Polyethylene Glycol Powder [Miralax] 17 grams PO DAILYPRN PRN
10/25/24 18:44
GASTROINTESTINAL CONSULT Routine
Consulting Provider: David Encarnacion
Was physician already notified: Yes
Activity As Directed
Activity Level: As Tolerated
Pneumatic Compression Sleeves As Directed
Type: Knee high
Vital Signs As Directed
Frequency: Per unit guidelines
DX Deep Vein Thrombosis Video Routine
10/25/24 23:59
0.9% Sodium Chloride 1000 ml [Nss] 1,000 ml IV 60 mls/hr
10/26/24 Breakfast
NPO
Allow oral meds: Yes
Allow clear liquids: Sips of Clears
Complete Blood Count/No Diff IN AM
Comprehensive Metabolic Panel IN AM
10/26/24 08:00
Pantoprazole [Protonix IV] 40 mg IV DAILY
10/27/24 06:00
Complete Blood Count/No Diff IN AM
Comprehensive Metabolic Panel IN AM
10/28/24 06:00
Complete Blood Count/No Diff IN AM
Comprehensive Metabolic Panel IN AM
Abnormal Lab Results
10/25/24
10:12
WBC 11.4 H 10^3/uL
(4.8-10.8)
Absolute Neuts (auto) 9.5 H 10^3/uL
(1.4-6.5)
Absolute Lymphs (auto) 1.1 L 10^3/uL
(1.2-3.4)
Absolute Monos (auto) 0.7 H 10^3/uL
(0.1-0.6)
Neutrophils % 83.2 H %
(42.2-75.2)
Lymphocytes % 9.4 L %
(20.5-51.1)
Chloride 108 H mmol/L
(98-107)
Glucose 115 H mg/dl
(70-99)
Total Bilirubin 2.0 H mg/dl
(0.2-1.3)
AST 169 H U/L
(14-36)
ALT 83 H U/L
(0-35)
Alkaline Phosphatase 204 H U/L
(38-126)
10/25/24 10:12
10/25/24 10:12
Vital Signs
Initial and Last Documented VS:
Initial Vital Signs
Temp Pulse Resp BP Pulse Ox
97.6 F 75 17 95/74 100
10/25/24 08:55 10/25/24 08:55 10/25/24 08:55 10/25/24 08:55 10/25/24 08:55
Last Documented Vital Signs
Temp Pulse Resp BP Pulse Ox
98.4 F 92 17 137/63 95
10/25/24 23:11 10/25/24 23:11 10/25/24 23:11 10/25/24 23:11 10/25/24 23:11
MDM/Problems Addressed
Differential Diagnosis Includes:
Not limited to choledocholithiasis pancreatitis, bile duct stricture
MDM/Problems Addressed:
As documented patient is a 64-year-old female who presents with abdominal pain upper in nature. She has a history of laparoscopic cholecystectomy and CBD stricture in the past with possible IPMN. She has been followed by GI and is scheduled for an
MRI in October but complains of increasing pain. She did flareup several days ago and again today. Patient presents very uncomfortable given nausea medicine pain medicine. Case reviewed with GI and MRI was ordered. CAT scan shows mild prominence
of the CBD without evidence for filling defects no strictures there is grossly stable tiny pancreatic cyst without suspicious features possibly pseudocyst and/or sidebranch intraductal papillary mucinous neoplasms. Patient continues to have pain
mild chills however afebrile here in the ER will need admission for pain control and reevaluation by GI. Patient's white count was minimally elevated LFTs minimally elevated as well however improved from prior labs.
*Radiology
Radiology exam reviewed: radiology read reviewed
*Pulse Oximetry
SaO2: 100
Oxygen Mode of Delivery: Room air
Patient hypoxic: no
*Critical Care Note
Total Time (30-74mins, 75-104mins- exclusive of procedures): Not Applicable
Patient Management
Discussion with other providers: Supervisor [employer] (DR Encarnacion)
ED Attending Note
-
Portions of this chart may have been created with voice recognition software.� Occasional wrong word or��sound alike� substitutions may have occurred due to the inherent limitations of voice recognition software.
Discharge Plan
Departure
Patient Disposition: Admit
Date of Disposition: 10/25/24
Time of Disposition: 17:32
Admit to: Med/Surg
Admit to doctor: hospitalist
Presentation/result/management discussed w/ accepting MD/DO: Hospitalist
Patient with high blood pressure during this ER visit?: No
Condition: Fair
Covid-19: Not Applicable
Discharge Problem:
Abdominal pain, Elevated LFTs
Interventions
Interventions:
*Risk Screen - Suicide Last Done: 10/25/24 08:58
*General Assessment Last Done: 10/25/24 10:00
*Neglect/Abuse Screening Last Done: 10/25/24 08:58
*ED- Fall Risk Assessment Last Done: 10/25/24 11:22
*ED COVID-19 Vaccine History Last Done: 10/25/24 10:00
*Nursing Disposition Last Done: 10/25/24 18:47
GQ-Owxkmn-Wnnvnvyrir Assessment Last Done: 10/25/24 10:00
Discharge Date and Time
Discharge Date/Time: 10/25/24 18:49
[2024-10-25 10:23] LABS: Hematocrit 39.6 % (37.0-47.0); Hemoglobin 13.3 g/dL (12.0-16.0); Mean Corp Hgb Conc. 33.6 g/dL (33.0-37.0); Mean Corpuscular Volume 87.2 fL (81.0-99.0); Nucleated Red Blood Cells % 0 %; Platelet Count 224 10^3/uL (130-400); Red Cell Dist. Width 13.5 % (11.5-14.5)
[2024-10-25 10:36] LABS: ALT (SGPT) 83 U/L (0-35); AST (SGOT) 169 U/L (14-36); Albumin 4.1 g/dl (3.5-5.0); Alkaline Phosphatase 204 U/L (38-126); Blood Urea Nitrogen 17 mg/dl (7-17); Calcium 9.1 mg/dl (8.4-10.2); Carbon Dioxide 28 mmol/L (22-30); Chloride 108 mmol/L (98-107); Glucose 115 mg/dl (70-99); Lipase 68 U/L (23-300); Potassium 4.4 mmol/L (3.5-5.1); Sodium 140 mmol/L (135-145); Total Protein 7.0 g/dl (6.3-8.2); eGFR > 60.00
[2024-10-25] MEDS: ZOFRAN 4 MG IV ×2 (11:49→15:59)
[2024-10-25 11:50] LABS: Urine Character Clear (Clear)
[2024-10-25] MEDS: MAALOX 40 PO (11:50)
[2024-10-25] MEDS: PROTONIX IV 40 MG IV (11:50)
[2024-10-25] MEDS: TORADOL 15 MG IV (13:36)
[2024-10-25] MEDS: DILAUDID 1 MG IV (15:56)
[2024-10-25] MEDS: NSS 1000 IV ×2 (15:56→23:14)
--- NOTE | 2024-10-25 18:02 | HPS.HSE ---
Family Physician
-
Family Physician: Nhi Arana
Chief Complaint
-
abdominal pain
History of Present Illness
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 She reports symptoms began 8 AM this morning. Pain characterized as sharp, epigastric, 8/10 with radiation from esophagus
down towards stomach. No radiation. No alleviating or aggravating factors. Reports Nausea but no vomiting. Also chills but no fevers. No diarrhea. No bleeding. No other complaints.
Medical History
Past Medical History
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
Past Surgical History: Reports Cholecystectomy
Social History
Unable to obtain full social history at this time due to: Dementia
Tobacco: Non-smoker
Alcohol: None
Drug: None
Personal:
Living: With Family
Family History
Family History: Not pertinent
Allergies / Home Medications
Allergies reflects when Allergies were last updated in [facility].
Home Medications with original date entered in [facility]
Allergy/Medication List:
Allergies
Allergy/AdvReac Type Severity Reaction Status Date / Time
Sulfa (Sulfonamide Allergy Rash Verified 02/12/24 04:59
Antibiotics)
tramadol Allergy Unknown Verified 02/12/24 04:59
Home Medications
cholecalciferol (vitamin D3) 25 mcg (1,000 unit) tablet (Vitamin D3) 50 mcg PO DAILY Supplement 11/15/22
calcium carbonate (Tums) 400 mg PO DAILYPRN PRN indigestion 02/12/24
ibuprofen 200 mg tablet (Advil) 200 mg PO Q6HPRN PRN mild pain 02/12/24
omega-3 fatty acids 1,000 mg PO NOON Supplement 02/12/24
red yeast rice 600 mg tablet 1,200 mg PO BID Supplement 02/12/24
therapeutic multivitamin 1 tab PO NOON Supplement 02/12/24
valacyclovir 500 mg tablet 500 mg PO DAILY infection prophylaxis 02/12/24
Review of Systems
-
A 12 point ROS was completed and negative except as noted: Yes
Physical Exam
Vital Signs
Vital Signs
Temp Pulse Resp BP Pulse Ox
97.6 F 94 19 148/58 94
10/25/24 08:55 10/25/24 15:52 10/25/24 15:30 10/25/24 17:26 10/25/24 17:28
Physical Exam
General: No Apparent Distress
HEENT: NormoCephalic and Anicteric
Respiratory: No Clear
Cardiac: S1/S2 and Regular Rhythm
GI: Soft, Non Tender and Non Distended
Neuro: AO x 3
Psych: Calm
Laboratory Results
-
10/25/24 10:12
10/25/24 10:12
Laboratory Results
Total Bilirubin 2.0 mg/dl (0.2-1.3) H 10/25/24 10:12
AST 169 U/L (14-36) H 10/25/24 10:12
ALT 83 U/L (0-35) H 10/25/24 10:12
Alkaline Phosphatase 204 U/L (38-126) H 10/25/24 10:12
Lipase 68 U/L (23-300) 10/25/24 10:12
Data Reviewed
-
MRI: Report Reviewed by me, Discussed with Physician, Discussed with Patient and Discussed with Family
Medical Tests (Nuc Med, Echo, EKG etc): Discussed with Family
Lab Data: Labs Reviewed by me, Discussed with Physician, Discussed with Patient and Discussed with Family
Impression/Plan
-
Assessment:
Abdominal pain
hx of lap florinda
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
hx of possible IPMN
Chronically elevated LFTs
- mostly epigastric/esophageal in nature
- MRI: Stable mild prominence of the proximal common bile duct without evidence for filling defects or strictures. No overt MR evidence for malignancy. Grossly stable scattered tiny pancreatic cyst without suspicious features, possibly pseudocysts
and/or side branch intraductal papillary mucinous neoplasms. Recommend follow-up MRI/MRCP abdomen without and with gadolinium contrast in one year per ACR criteria.
- GI consulted; may need EGD or EUS
- check blood cultures with reported chills
- if febrile, start Abx
- supportive care with pain control, antiemetics
- daily PPI
DVT ppx: SCDs
Code: Full
[2024-10-25] MEDS: TORADOL 10 MG IV (18:58)
[2024-10-25] MEDS: DILAUDID 0.5 MG IV (21:57)
[2024-10-26] VITALS (7 sets, daily range): BP systolic 116–145; BP diastolic 47–71
--- NOTE | 2024-10-26 06:21 | CON.GI ---
Addendum entered and electronically signed by David Encarnacion DO 10/26/24 15:07:
I saw and examined the patient.
The MINE PATROL's note was reviewed and I agree with the note.
Comment: Ms Lebron is a 64 y.o female with past medical history of prior CCY (s/p ERCP for choledocho, s/p previous stent now removed), endometrial cancer (s/p ANDRIA), colon polyps, diverticulitis (01/2024), and pancreatic cysts who presented to the ED
with epigastric pain and elevated LFTs. Patient notes intermittent bouts of acute on chronic epigastric discomfort with radiation into her chest. She's had pain like this before in the past where a prior Abdominal US was concerning for CBD
distension (felt to be related to prior CCY). She eventually had an EUS on 01/2024 which was unrevealing. She later followed up with Dr. Mills (her primary GI) with improved LFTs and advised to have a MRI/MRCP for further evaluation of both her
pain and f/u of her pancreatic cysts. She re-presented to the ED on 10/25 given her worsening epigastric pain where an eventual MRI/MRCP on 10/25/24 revealed a prominent CBD (up to 7mm) without any strictures or intraluminal filling defects and
initially felt to be possibly from her prior CCY. However, she was found to be febrile on admission with fever 101, leukocytosis along with worsening LFTs with AST 300, ALT 315, ALP 318 and T Bili 6.1 (previously AST 169, ALT 83, ALP 204, and T Bili
of 2.0 on day prior on 10/25). This AM, she reports resolution of her abdominal pain currently and without any epigastric discomfort. However, still suspicious for biliary pathology and concern for small CBD stone versus sludge/debris resulting in
transient biliary obstruction given her acute rise in her LFTs. Not related to her small, subcentimeter pancreatic cysts without any high-risk features but still would benefit from ongoing surveillance in future. Ultimately, she would benefit from
an EUS first (given her negative MRI/MRCP) and potential ERCP if debris/sludge and/or stone were to be visualized. Will attempt to perform this today pending availability with Dr. Torre. For now, would keep NPO and continue empiric IV abx. If EUS +/-
ERCP unable to be performed, would be okay for clear liquids. Agree with ongoing supportive care as per primary. See rest of care as outlined below.
Discussed with primary internal medicine team. GI will continue to follow.
Original Note:
Consultation
-
Date/Time Consultation Requested: 10/25/241829
Date/Time Consultation Performed: 10/26/24 0630
Requesting Provider: Yelena Obando MD
Performing Provider: FABRICE Freeman, David Encarnacion Do
Reason for Consultation: abdominal pain, increased LFT's
Medical History
Chief Complaint / HPI
Chief Complaint: abdominal pain
History of Present Illness:
Pt is a 64yo with hx prior florinda many years ago with post -op ERCP for stone removal with stent placement, hyperlipidemia,ANDRIA for endometrial CA, colon polyps, diverticulitis with admission in 01/2024 with epigastric/chest pain and elevated LFT's
on admission. At that time she had multiple diagnostic studies CTA with no aneurysm or dissection, CT with diverticulosis, renal cysts no obstructive uropathy. US with concern for CBD distention from prior florinda CT no acute process or duct
dilation and MRCP with distention of proximal to mid CBD distal tapering of unclear etiology. 5 tiny foci in panc tail concern for IPMN need follow up MRI 6-12 months. She then proceeded for EUS 02/13/24 with no pathology in panc head, body or
tail, ampulla or left lobe of liver. Etiology ? stone vs other. She was seen in follow with Dr. Mills with LFT's improved with alk phos 143 otherwise normal labs on 03/30/24. She called in July with recurrent pain with bili 0.6, AST 63, ALT
139 and alk phos 224. She was recommended repeat MRI that was due in mid October. She now presents 10/26 with recurrent abdominal pain. She admits to severe leg pain 10/25 with NSAID use but also had concurrent epigastric/chest pain. On admission
WBC 11,400 with bili 2, AST 169, ALT 83, alk phos 204 with fever and further rise in LFT's and WBC after admission. She completed MRI on admission with prominent proximal CBD without filling defect or stricture, no malignancy. Also noted stable
scattered tiny panc cyst without suspicious features, pseudocyst vs side branch IPMN recommend repeat in 1 year.
In review with patient she admits to recurrent episode of pain. Some episodes are post prandial and she did have episode at night. She was noted with shaking chill in ER with fever 101 after admission. She did also have vomiting with pain and
dark urine. She otherwise denies dysphagia, GERD, diarrhea, constipation or bleeding.
Past Medical History
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
Past Surgical History: Cholecystectomy (with post -op ERCP with stone removal and stent), , Gynecological (breast Bx, D+c, ANDRIA) and Other (lumpectomy)
Social History
Tobacco: Non-Smoker
Alcohol: None
Drug: None
Personal:
Living: With Family
Employment: Retired
Family History
Family History: Reviewed & Not Pertinent
Allergies / Home Medications
Allergy/AdvReac Type Severity Reaction Status Date / Time
Sulfa (Sulfonamide Allergy Rash Verified 02/12/24 04:59
Antibiotics)
tramadol Allergy achy Verified 10/25/24 18:45
�Medication �Instructions �Recorded
cholecalciferol (vitamin D3) 25 50 mcg PO DAILY Supplement 11/15/22
mcg (1,000 unit) tablet (Vitamin
D3)
calcium carbonate (Tums) 400 mg PO DAILYPRN PRN indigestion 02/12/24
ibuprofen 200 mg tablet (Advil) 200 mg PO Q6HPRN PRN mild pain 02/12/24
omega-3 fatty acids 1,000 mg PO NOON Supplement 02/12/24
red yeast rice 600 mg tablet 1,200 mg PO BID Supplement 02/12/24
therapeutic multivitamin 1 tab PO NOON Supplement 02/12/24
valacyclovir 500 mg tablet 500 mg PO PRN PRN infection 02/12/24
prophylaxis
Review of Systems
-
History Source: Patient
Constitutional: Reports Fever
EENT: Reports No Symptoms
Cardiac: Reports Chest Pain
Abdomen/GI: Reports Abdominal Pain, Nausea and Vomiting
: Reports Dark Urine
Musculoskeletal: Reports Other (left sided leg pain)
Neurological: Reports No Symptoms
Endocrine: Reports No Symptoms
Hematologic/Lymphatic: Reports No Symptoms
Vital Signs
Temp Pulse Resp BP Pulse Ox
98.4 F 92 17 137/63 95
10/25/24 23:11 10/25/24 23:11 10/25/24 23:11 10/25/24 23:11 10/25/24 23:11
Physical Exam
Exam
General: Well Developed, Well Nourished and No Apparent Distress
HEENT: Normocephalic and Other (jaundice )
Respiratory: Clear
Cardiac: Regular Rhythm
GI: Soft, Non Tender and Non Distended
Musculoskeletal: No Cyanosis
Skin: Warm and Dry
Neuro: Awake, Alert and AO x 3
Psych: Calm
Results
WBC 11.4 10^3/uL (4.8-10.8) H 10/25/24 10:12
Hgb 13.3 g/dL (12.0-16.0) 10/25/24 10:12
Hct 39.6 % (37.0-47.0) 10/25/24 10:12
MCV 87.2 fL (81.0-99.0) 10/25/24 10:12
Plt Count 224 10^3/uL (130-400) 10/25/24 10:12
Absolute Neuts (auto) 9.5 10^3/uL (1.4-6.5) H 10/25/24 10:12
Sodium 140 mmol/L (135-145) 10/25/24 10:12
Potassium 4.4 mmol/L (3.5-5.1) 10/25/24 10:12
Chloride 108 mmol/L (98-107) H 10/25/24 10:12
Carbon Dioxide 28 mmol/L (22-30) 10/25/24 10:12
BUN 17 mg/dl (7-17) 10/25/24 10:12
Creatinine 0.7 mg/dL (0.6-1.0) 10/25/24 10:12
Calcium 9.1 mg/dl (8.4-10.2) 10/25/24 10:12
Total Bilirubin 2.0 mg/dl (0.2-1.3) H 10/25/24 10:12
AST 169 U/L (14-36) H 10/25/24 10:12
ALT 83 U/L (0-35) H 10/25/24 10:12
Alkaline Phosphatase 204 U/L (38-126) H 10/25/24 10:12
Lipase 68 U/L (23-300) 10/25/24 10:12
Diagnostic Image Results:
10/25/24 MRI with and without contrast
Stable mild prominence of the proximal common bile duct without evidence for filling defects or strictures. No overt MR evidence for malignancy.
Grossly stable scattered tiny pancreatic cyst without suspicious features, possibly pseudocysts and/or side branch intraductal papillary mucinous neoplasms. Recommend follow-up MRI/MRCP abdomen without and with gadolinium contrast in one year per
ACR criteria.
02/12/24 CT Abd/Pel (IV only)-DH only
No acute inflammatory process within the abdomen or pelvis.
Diverticulosis without acute diverticulitis. No bowel obstruction.
Stable renal cysts. No obstructive uropathy.
Prior cholecystectomy.
Mild hepatomegaly.
No intrahepatic or extrahepatic biliary ductal dilatation, as suggested on ultrasound.
02/12/24 US Abdomen Complete/Upper
Slightly distended common bile duct (8 mm), and questionable mild intrahepatic duct dilatation. Findings may be related to prior cholecystectomy. CT may be considered as initial step for further evaluation, followed by MRCP if indicated.
02/12/24 MRCP
There is mild distention of the proximal to mid common bile duct. Distally, the common bile duct abruptly tapers. Cause for this is not identified on this exam. It could be related to postinflammatory or malignant distal common bile duct stricture
(particularly given the history of abnormal serum bilirubin). Consider ERCP for further evaluation
Approximate 5 tiny bright T2 signal foci in the pancreatic tail. These are probably related to intraductal papillary mucinous neoplasia. Follow-up MRI abdomen/MRCP in 6-12 months recommended for reevaluation
No acute inflammatory process in the abdomen
02/12/24 CT Chest Angio W/wo Iv Contras
No aortic aneurysm or dissection.
Prior GI Procedures:
EGD: ? years ago wtih ERCP
ERCP 25 years ago for CBD stone
Colonoscopy: 12/2022- - One 7 mm polyp in the proximal sigmoid colon,
removed with a hot snare. Resected and retrieved.
- One 10 mm polyp in the distal sigmoid colon, removed
with a hot snare. Resected and retrieved.
- Diverticulosis in the sigmoid colon and in the
descending colon.
- Internal hemorrhoids.
- The examination was otherwise normal.
bx inflammatory polyp
02/13/24 EUS
- There was no sign of significant pathology in the
pancreatic head, pancreatic body and pancreatic tail.
- There was no sign of significant pathology in the
common bile duct.
- There was no sign of significant pathology in the
ampulla.
- There was no evidence of significant pathology in
the left lobe of the liver.
- No specimens collected.
Assessment / Plan
-
Pt is a 64yo with hx prior florinda years ago with post -op ERCP for stone removal with stent placement, hyperlipidemia,ANDRIA for endometrial CA, colon polyps, diverticulitis with admission in 01/2024 with epigastric/chest pain and elevated LFT's on
admission. At that time she had multiple diagnostic studies CTA with no aneurysm or dissection, CT with diverticulosis, renal cysts no obstructive uropathy. US with concern for CBD distention from prior [place] CT no acute process or duct dilation
and MRCP with distention of proximal to mid CBD distal tapering of unclear etiology. 5 tiny foci in panc tail concern for IPMN need follow up MRI 6-12 months. She then proceeded for EUS 02/13/24 with no pathology in panc head, body or tail,
ampulla or left lobe of liver. Etiology ? stone vs other. She was seen in follow with Dr. Mills with LFT's improved with alk phos 143 otherwise normal labs on 03/30/24. She called in July with recurrent pain with bili 0.6, AST 63, ALT 139 and
alk phos 224. She was recommended repeat MRI that has not been completed. She now presents with recurrent abdominal pain.She admits to severe leg pain 10/25 with NSAID use but also had concurrent epigastric/chest pain. On admission WBC 11,400
with bili 2, AST 169, ALT 83, alk phos 204 with fever and further rise in LFT's and WBC after admission. She was noted with shaking chill in ER with fever 101 after admission. She did also have vomiting with pain and dark urine.
10/25/24 MRI on admission with prominent proximal CBD without filling defect or stricture, no malignancy. Also noted stable scattered tiny panc cyst without suspicious featuyrs, pseudocyst vs side branch IPMN recommend repeat in 1 year.
-recurrent epigastric pain with increased LFT's--
-fever/leukocytosis
-recent leg pain with NSAID use with onset of epigastric pain
- admission 01/2024 with epigastric pain with possible IPMN and CBD taping with normal EUS
-hx florinda 25 years ago with post-op ERCP with stone removal and stents
other med problems:
-endometrial CA s/p hysterectomy
-hx colon polyps- inflammatory
-diverticulosis/diverticulitis
PLAN:
etiology of recurrent epigastric pain with LFT elevation related to recurrent passed CBD stone/retained stool with further rise in LFT's vs other
MRI no stone prominent CBD tiny stable panc cyst
will review with Dr. Torre for repeat EUS+/- ERCP if able to proceed today-
monitor for recurrent fever
reviewed with Dr. Aldridge - abx started
await blood culture data
will add repeat lipase
initially discussed with patient for OP follow up with reviewed again with fever, with rise in LFT and WBC's would recommended continued admission
ok for clear breakfast then NPO pending ability for endoscopic testing later today
reviewed with Dr. Mills 10/25 OP GI MD
-
-
Thank you for consultation and allowing me to participate in the patient's care. Please call the sales donor recruitment representative GI physician during the after hours with any questions or concerns.
[2024-10-26 07:23] LABS: Hematocrit 36.0 % (37.0-47.0); Hemoglobin 12.1 g/dL (12.0-16.0); Mean Corp Hgb Conc. 33.6 g/dL (33.0-37.0); Mean Corpuscular Volume 87.2 fL (81.0-99.0); Platelet Count 189 10^3/uL (130-400); Red Cell Dist. Width 13.8 % (11.5-14.5)
[2024-10-26 07:48] LABS: ALT (SGPT) 315 U/L (0-35); AST (SGOT) 300 U/L (14-36); Albumin 3.6 g/dl (3.5-5.0); Alkaline Phosphatase 318 U/L (38-126); Blood Urea Nitrogen 18 mg/dl (7-17); Calcium 8.4 mg/dl (8.4-10.2); Carbon Dioxide 20 mmol/L (22-30); Chloride 109 mmol/L (98-107); Estimated Creatinine Clearance 86 ml/min; Glucose 87 mg/dl (70-99); Potassium 4.0 mmol/L (3.5-5.1); Sodium 138 mmol/L (135-145); Total Protein 6.3 g/dl (6.3-8.2); eGFR > 60.00
[2024-10-26] MEDS: NSS (PRESERVATIVE FREE) 10 ML IV (08:18)
[2024-10-26] MEDS: ZOSYN 50 IV ×3 (08:18→19:42)
[2024-10-26] MEDS: PROTONIX IV 40 MG IV (08:18)
--- NOTE | 2024-10-26 09:05 | W.PN.HOSP.TC ---
Today's Communication/Plan
-
continue supportive care
Abx pending cultures
follow daily labs
await timing of EUS/ERCP. Follow GI recs
Assessment / Plan
Assessment / Plan
Assessment:
Sepsis (fever, leukocytosis, probable biliary source)
Abdominal pain
hx florinda 25 years ago with post-op ERCP with stone removal and stents
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
hx of possible IPMN
acute LFT elevation on Chronically elevated LFTs
- mostly epigastric/esophageal in nature
- MRI: Stable mild prominence of the proximal common bile duct without evidence for filling defects or strictures. No overt MR evidence for malignancy. Grossly stable scattered tiny pancreatic cyst without suspicious features, possibly pseudocysts
and/or side branch intraductal papillary mucinous neoplasms. Recommend follow-up MRI/MRCP abdomen without and with gadolinium contrast in one year per ACR criteria.
- GI consulted; with elevated LFTs and WBC, will pursue ERCP/EUS either today vs pending availability
- started Zosyn, day 1. Follow cultures
- supportive care with pain control, antiemetics
- daily PPI
DVT ppx: SCDs
Code: Full
Anticipated Discharge: > 48 hours
Subjective/Interval History
-
Date of Service: October 26, 2024
febrile overnight
WBC/LFTs increased this AM
pain stable
Objective Data
-
Labs:
Laboratory Results
10/26/24
06:17
WBC 21.0 H
Hgb 12.1
Hct 36.0 L
Plt Count 189
Sodium 138
Potassium 4.0
Chloride 109 H
Carbon Dioxide 20 L
BUN 18 H
Creatinine 0.7
Glucose 87
Calcium 8.4
Total Bilirubin 6.1 H D
AST 300 H
ALT 315 H
Alkaline Phosphatase 318 H
Vital Signs:
Vital Signs
Temp Pulse Resp BP Pulse Ox
98.2 F 85 18 118/56 92
10/26/24 07:41 10/26/24 07:41 10/26/24 07:41 10/26/24 07:41 10/26/24 07:41
I&O
10/25/24 10/26/24 10/27/24
06:59 06:59 06:59
Intake Total 960 / 960
Balance 960 / 960
Physical Exam
-
General: No Apparent Distress
HEENT: Normocephalic and Atraumatic
Respiratory: Negative Wheezes
Cardiac: Regular Rhythm and S1/S2
GI: Soft
Genito-urinary: No Costovertebral Tender
Neuro: AO x 3
Psych: Calm
Data Reviewed
-
Total Time Spent with Patient (in minutes): 44
Labs: Labs Reviewed by me
[2024-10-26 09:52] LABS: Lipase 28 U/L (23-300)
--- NOTE | 2024-10-26 11:56 | CM ---
CM following re: discharge planning.
Reviewed pt's chart, met with pt.
Pt is a 64 year old female, admitted with OBS status and upgraded to inpatient admission today and primary dx of Abdominal pain. Both OBS letter and IMM reviewed. Pt stated her secondary insurance is Medicare.
Pt reports she lives with 2SH, 3 steps to enter, has 2 supportive children. 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
PCP: [facility] Ar[facility]
Pharmacy: [facility]
D/C plan: home with anticipated no needs. to transport at discharge.
CM will follow with discharge plan updates as hospitalization progresses
--- NOTE | 2024-10-26 12:06 | W.PN.UPDATE ---
Update Note
Progress Note Update
reviewed with Dr. Torre and Dr. Encarnacion-- possible add for EUS +/- ERCP later today if time allow. If not today will be as no ERCP availability tomorrow. I update pt and spouse with risk benefit of procedure. All questions answered.
[2024-10-26] MEDS: TORADOL 10 MG IV (12:31)
--- NOTE | 2024-10-26 15:34 | W.PN.UPDATE ---
Update Note
Progress Note Update
updated pt and nursing staff again on status of GI lab as may not be able to do EUS today. cont NPO ok for oral diet if not proceeding later-- nursing will follow up with GI labs around 5-6 pm for status. discussed risk/benefit if improves over
next 2 days of proceeding on . cont abx await blood cx.
--- NOTE | 2024-10-26 19:12 | PTCARENOTE ---
GI lab called to floor stating to this RN to order clear liquid diet for patient to have after potential EUS later on this evening, patient currently NPO since breakfast this AM for potential EUS today vs . Verbal order for diet placed per
Dr Torre, clear liquid tray ordered, patient aware she cannot eat/drink pending EUS. IVF DCed, patient denying abd pain at this time, afebrile throughout shift, medicated with PRN IV toradol earlier in shift for MCNEAL, stated partial relief after med
administration - see MAY. Patient okay to shower pending EUS per MD. Ambulatory in room independently, ringing appropriately.
--- NOTE | 2024-10-26 22:40 | PTCARENOTE ---
Rec'd patient from PACU. No complaints at this. stable vitals. tolerating clear liquid diet. POC reviewed with patient.
[2024-10-27 00:37] VITALS: BP 148/67
[2024-10-27] MEDS: ZOSYN 50 IV ×2 (01:03→08:52)
[2024-10-27 01:30] VITALS: BP 137/64
--- NOTE | 2024-10-27 01:58 | PTCARENOTE ---
Rec'd patient from PACU. No complaints at this. stable vitals. tolerating clear liquid diet. POC reviewed with patient.
[2024-10-27 03:02] VITALS: BP 111/73
[2024-10-27 07:35] VITALS: BP 131/62
[2024-10-27 07:37] LABS: Hematocrit 33.9 % (37.0-47.0); Hemoglobin 11.3 g/dL (12.0-16.0); Mean Corp Hgb Conc. 33.3 g/dL (33.0-37.0); Mean Corpuscular Volume 86.9 fL (81.0-99.0); Platelet Count 186 10^3/uL (130-400); Red Cell Dist. Width 13.9 % (11.5-14.5)
[2024-10-27 07:41] LABS: ALT (SGPT) 215 U/L (0-35); AST (SGOT) 129 U/L (14-36); Albumin 3.5 g/dl (3.5-5.0); Alkaline Phosphatase 276 U/L (38-126); Blood Urea Nitrogen 16 mg/dl (7-17); Calcium 8.3 mg/dl (8.4-10.2); Carbon Dioxide 22 mmol/L (22-30); Chloride 110 mmol/L (98-107); Estimated Creatinine Clearance 86 ml/min; Glucose 79 mg/dl (70-99); Potassium 4.1 mmol/L (3.5-5.1); Sodium 139 mmol/L (135-145); Total Protein 6.1 g/dl (6.3-8.2); eGFR > 60.00
--- NOTE | 2024-10-27 08:42 | W.PN.GI.CBS2 ---
Addendum entered and electronically signed by David Encarnacion DO 10/27/24 10:33:
I saw and examined the patient.
The WELDING EQUIPMENT REPAIRER SUPERVISOR's note was reviewed and I agree with the note.
Comment: Reviewed patient's recent EUS at bedside this AM. Unremarkable for any stone/sludge, only mild dilation of CBD measuring up to 7 mm. Still suspicious for either passed stone and/or sludge based on her symptoms and overall clinical
presentation with her acute rise in LFTs further suggestive of transient biliary obstruction. As her pain is resolved with downtrending LFTs, improving leukocytosis, and resolution of her previous abdominal pain, reasonable for close outpatient
follow-up with Dr. Torre as an outpatient in the next few months as well as f/u with her primary GI with Dr. Mills after her hospitalization. Would continue an empiric course of antibiotics and would obtain repeat LFTs in 1 week which has been
coordinate with our office. Agree with rest of recommendations as outlined below.
GI will sign-off, please re-contact with any questions or concerns.
Original Note:
Today's Communication / Plan
-
etiology of recurrent epigastric pain with LFT elevation related to possible recurrent passed CBD stone with further rise in LFT's after admission and fever
Pt now feeling better with no pain or further fever asking about discharge
WBC's and LFT's improving , blood cx neg so far at 24 hours
Pt completed EUS with sludge no stools and stranding panc head and body but normal lipase
remain on abx reviewed with Dr. Aldridge
will advance diet to low fat diet
will review with Dr. Aldridge for possible discharge
I sent message for 3 month follow up with Dr. Torre as recurrent admission with similar presentation and neg work up
I sent labs slip to [facility] for repeat labs in 1 week to ensure LFT's improving
Assessment / Plan
-
Pt is a 64yo with hx prior florinda years ago with post -op ERCP for stone removal with stent placement, hyperlipidemia,ANDRIA for endometrial CA, colon polyps, diverticulitis with admission in 01/2024 with epigastric/chest pain and elevated LFT's on
admission. At that time she had multiple diagnostic studies CTA with no aneurysm or dissection, CT with diverticulosis, renal cysts no obstructive uropathy. US with concern for CBD distention from prior [place] CT no acute process or duct dilation
and MRCP with distention of proximal to mid CBD distal tapering of unclear etiology. 5 tiny foci in panc tail concern for IPMN need follow up MRI 6-12 months. She then proceeded for EUS 02/13/24 with no pathology in panc head, body or tail,
ampulla or left lobe of liver. Etiology ? stone vs other. She was seen in follow with Dr. Mills with LFT's improved with alk phos 143 otherwise normal labs on 03/30/24. She called in July with recurrent pain with bili 0.6, AST 63, ALT 139 and
alk phos 224. She was recommended repeat MRI that has not been completed. She now presents with recurrent abdominal pain.She admits to severe leg pain 10/25 with NSAID use but also had concurrent epigastric/chest pain. On admission WBC 11,400
with bili 2, AST 169, ALT 83, alk phos 204 with fever and further rise in LFT's and WBC after admission. She was noted with shaking chill in ER with fever 101 after admission. She did also have vomiting with pain and dark urine.
10/25/24 MRI on admission with prominent proximal CBD without filling defect or stricture, no malignancy. Also noted stable scattered tiny panc cyst without suspicious featuyrs, pseudocyst vs side branch IPMN recommend repeat in 1 year.
10/26/24-- EUS
- There was dilation in the common bile duct which measured up to 7
mm.
- Hyperechoic material consistent with sludge was visualized
endosonographically in the common bile duct.
- Pancreatic parenchymal abnormalities consisting of hyperechoic
strands were noted in the pancreatic head and pancreatic body.
- There was no sign of significant pathology in the ampulla.
- There was no evidence of significant pathology in the left lobe
of the liver.
-recurrent epigastric pain with increased LFT's
-sludge in CBD
-fever/leukocytosis
-recent leg pain with NSAID use with onset of epigastric pain
- admission 01/2024 with epigastric pain with possible IPMN and CBD taping with normal EUS
-hx florinda 25 years ago with post-op ERCP with stone removal and stents
other med problems:
-endometrial CA s/p hysterectomy
-hx colon polyps- inflammatory
-diverticulosis/diverticulitis
PLAN:
etiology of recurrent epigastric pain with LFT elevation related to recurrent possible passed CBD stone with further rise in LFT's after admission and fever
Pt now feeling better with no pain or further fever asking about discharge
WBC's and LFT's improving , blood cx neg so far at 24 hours
Pt completed EUS with sludge no stools and stranding panc head and body but normal lipase
remain on abx reviewed with Dr. Aldridge
will advance diet to low fat diet
will review with Dr. Aldridge for possible discharge
I sent message for 3 month follow up with Dr. Torre as recurrent admission with similar presentation and neg work up
I sent labs slip to [facility] for repeat labs in 1 week to ensure LFT's improving
Subjective
Subjective
Date of Service: October 27, 2024
Pt feeling better, no pain, asking about discharge small stool 10/26
Objective
Data Reviewed
Laboratory Data:
Laboratory Results
10/27/24 06:51
10/27/24 06:51
Laboratory Results
Total Bilirubin 5.7 mg/dl (0.2-1.3) H 10/27/24 06:51
AST 129 U/L (14-36) H 10/27/24 06:51
ALT 215 U/L (0-35) H 10/27/24 06:51
Alkaline Phosphatase 276 U/L (38-126) H 10/27/24 06:51
Lipase 28 U/L (23-300) 10/26/24 06:17
Vital Signs and I&O:
Vital Signs
Temp Pulse Resp BP Pulse Ox
98.5 F 66 18 131/62 97
10/27/24 07:35 10/27/24 07:35 10/27/24 07:35 10/27/24 07:35 10/27/24 07:35
I&O
10/26/24 10/27/24 10/28/24
06:59 06:59 06:59
Intake Total 960 / 960 960 / 960
Balance 960 / 960 960 / 960
Physical Exam
Physical Exam
HEENT: Other (minimal jaundice )
Cardiology: Normal Sinus Rhythm
Pulmonary: Clear
GI: Soft, Non Distended and Non Tender
Extremities: No Edema
Neuro: Non Focal
[2024-10-27] MEDS: PROTONIX IV 40 MG IV (08:52)
[2024-10-27] MEDS: NSS (PRESERVATIVE FREE) 10 ML IV (08:53)
--- NOTE | 2024-10-27 11:34 | W.PN.HOSP.TC ---
Today's Communication/Plan
-
dc home
Assessment / Plan
Assessment / Plan
Assessment:
Sepsis (fever, leukocytosis, probable biliary source)
Abdominal pain
hx florinda 25 years ago with post-op ERCP with stone removal and stents
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
hx of possible IPMN
acute LFT elevation on Chronically elevated LFTs
- mostly epigastric/esophageal in nature
- MRI: Stable mild prominence of the proximal common bile duct without evidence for filling defects or strictures. No overt MR evidence for malignancy. Grossly stable scattered tiny pancreatic cyst without suspicious features, possibly pseudocysts
and/or side branch intraductal papillary mucinous neoplasms. Recommend follow-up MRI/MRCP abdomen without and with gadolinium contrast in one year per ACR criteria.
- s/p EUS With mild sludge, no obvious stone. only mild dilation of CBD measuring up to 7 mm.
- likely felt to be passed stone or sludge with lead to transient biliary obstruction
- will dc on Augmentin to complete 7 day course
- OP GI f/u with Dr. Mills. repeat LFTs in 1 week
DVT ppx: SCDs
Code: Full
More than 30 minutes spent in discharge including
Final examination of the patient
Summarizing hospital stay
Instructions for continuing care to all relevant caregivers
Preparation of discharge records, prescriptions, and referral forms
Total time spent (in minutes): 41
Anticipated Discharge: Today
Subjective/Interval History
-
Date of Service: October 27, 2024
denies any new complaints
Objective Data
-
Labs:
Laboratory Results
10/27/24
06:51
WBC 10.7
Hgb 11.3 L
Hct 33.9 L
Plt Count 186
Sodium 139
Potassium 4.1
Chloride 110 H
Carbon Dioxide 22
BUN 16
Creatinine 0.7
Glucose 79
Calcium 8.3 L
Total Bilirubin 5.7 H
AST 129 H
ALT 215 H
Alkaline Phosphatase 276 H
Vital Signs:
Vital Signs
Temp Pulse Resp BP Pulse Ox
98.5 F 66 18 131/62 97
10/27/24 07:35 10/27/24 07:35 10/27/24 07:35 10/27/24 07:35 10/27/24 09:03
I&O
10/26/24 10/27/24 10/28/24
06:59 06:59 06:59
Intake Total 960 / 960 960 / 960
Balance 960 / 960 960 / 960
Physical Exam
-
General: No Apparent Distress
HEENT: Normocephalic and Atraumatic
Respiratory: Negative Wheezes
GI: Soft and Nontender
Musculoskeletal: No Edema
Neuro: AO x 3
Psych: Calm
Data Reviewed
-
Total Time Spent with Patient (in minutes): 41
Labs: Labs Reviewed by me
[2024-10-27 11:55] VITALS: BP 127/65
--- NOTE | 2024-10-27 12:06 | CM ---
CM following re: discharge planning.
Reviewed pt's chart, met with pt.
Discharge order noted. Pt is aware, expressed her agreement and pt stated her will transport home.
No after care VN needs identified.
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
D/C plan: home with no after care VN needs. to transport
--- NOTE | 2024-10-27 13:09 | PTCARENOTE ---
Patient discharged home, transported by . This RN removed patient's IV, patient dressed and gathered belongings in room independently. Vitals taken by tech stable. Discharge instructions/medications reviewed with patient and patient's spouse
at bedside, both verbalized understanding. Patient refused wheelchair escort, ambulated down to car independently with .
--- NOTE | 2024-10-27 15:07 | W.DS.TRANS ---
DC Summary - [employer] Intern
-
Discharge Instructions:
Discharge Diagnosis/Procedures sepsis, elevated LFTs, sludge in bile duct on
EUS 10/26
Diet Low Fat
Activity As tolerated
Bathing Restrictions None
Blood Work electronic lab slip sent to [facility] for CBC and
Liver function for Dr. Mills to repeat in 1
week
Instructions:
Stand-Alone Forms:
Changes to Home Medications: No
Discharge Medications:
DC Medications w/original date entered in [employer]
cholecalciferol (vitamin D3) 25 mcg (1,000 unit) tablet (Vitamin D3) 50 mcg PO DAILY Supplement 11/15/22
calcium carbonate (Tums) 400 mg PO DAILYPRN PRN indigestion 02/12/24
ibuprofen 200 mg tablet (Advil) 200 mg PO Q6HPRN PRN mild pain 02/12/24
omega-3 fatty acids 1,000 mg PO NOON Supplement 02/12/24
red yeast rice 600 mg tablet 1,200 mg PO BID Supplement 02/12/24
therapeutic multivitamin 1 tab PO NOON Supplement 02/12/24
valacyclovir 500 mg tablet 500 mg PO PRN PRN infection prophylaxis 02/12/24
acetaminophen 325 mg tablet 650 mg (2 x 325 mg) PO Q4HPRN PRN mild pain/MCNEAL/temp> 100.4F #100 tabs 10/27/24
amoxicillin 875 mg-potassium clavulanate 125 mg tablet 1 tab PO Q12H #12 tabs 10/27/24
Home Medication Changes
Pending Results: No
Total time spent discharging patient (in min): 42
== END 2024-10-27 13:34 | disposition home or self-care (01) | DRG 871 ==
LOC: 2 NORTH 11:04
PROVIDERS: Internal Medicine Gastroenterology; Nurse Practitioner; ADMITTING PHYSICIAN Internal Medicine; CONSULT PHYSICIAN Student in an Organized Health Care Education/Training Program; EMERGENCY PHYSICIAN Emergency Medicine; FAMILY PHYSICIAN Nurse Practitioner Adult Health
PROC: BF4CZZZ Ultrasonography of Hepatobiliary System, All (ICD-10-PCS; 2024-10-26)
PROC: 0DJ08ZZ Inspection of Upper Intestinal Tract, Via Natural or Artificial Opening Endoscopic (ICD-10-PCS; 2024-10-26)
DX: A41.9 Sepsis, unspecified organism (principal); K83.1 Obstruction of bile duct; B00.1 Herpesviral vesicular dermatitis; E78.00 Pure hypercholesterolemia, unspecified; K83.8 Other specified diseases of biliary tract; R74.8 Abnormal levels of other serum enzymes; Z79.899 Other long term (current) drug therapy; Z85.42 Personal history of malignant neoplasm of other parts of uterus; Z86.0100 Personal history of colon polyps, unspecified; Z90.710 Acquired absence of both cervix and uterus; Z90.49 Acquired absence of other specified parts of digestive tract
CPT/HCPCS: 74183; 80053; 81003; 83690; 85025; 85027; 87040; 87070; 93005; 96361; 96374; 96375; 96376; 99285; A9575

== ENCOUNTER 2025-01-06 06:04 | Day surgery (SDC) | payer BC, SELFPAY ==
[2025-01-06] VITALS (9 sets, daily range): BP systolic 138–164; BP diastolic 66–86; BMI 33.5
== END 2025-01-06 14:45 | disposition home or self-care (01) ==
LOC: SDS 06:04
PROVIDERS: ATTENDING PHYSICIAN Internal Medicine Gastroenterology
DX: K83.8 Other specified diseases of biliary tract (principal); R74.8 Abnormal levels of other serum enzymes; Z98.890 Other specified postprocedural states; Z90.49 Acquired absence of other specified parts of digestive tract
CPT/HCPCS: 43274; 74330; 76000; C1769; C2617; C2625

== ENCOUNTER 2025-01-12 09:32 | Inpatient (IN) | payer BC, MEDICARE, SELFPAY ==
[2025-01-10] VITALS (8 sets, daily range): BP systolic 143–155; BP diastolic 62–83; BMI 32.4
--- NOTE | 2025-01-10 15:40 | ED.GENMED ---
History of Present Illness
General
Chief Complaint: Abdominal Symptoms
Time Seen by Provider: 01/10/25 15:18
History of Present Illness
History of Present Illness:
Patient presents to the emergency department with abdominal pain. On January 06 she had an ERCP with sphincterotomy of the sphincter of Oddi as well as biliary and pancreatic stent placements. She reports since then she has been having episodes of
severe epigastric pain radiating to her back. Pain comes in waves and last for few minutes at a time. No nausea or vomiting. No diarrhea or constipation. No fevers or chills
Past History
Past History
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
ED Past Surgical History: Cholecystectomy, and Other (Breast lump removal)
Social History
Tobacco: Non-smoker
Alcohol: None
Drug: None
Personal:
Living: with family
Employment: Employed
Family History
Family History: CAD (Father with history of CAD/MIs in his 40s)
Phy Exam
Physical Exam
Physical Exam:
GENERAL APPEARANCE: NAD, well developed/ well nourished
EYES lids/conjunctiva normal
EARS/NOSE/THROAT Mucous membranes moist, uvula midline without oral pharyngeal erythema, exudate or swelling
HEAD/NECK normocephalic atraumatic, neck is supple.
RESPIRATORY respiratory effort normal, speaks in full sentences, no accessory muscle use. Lungs clear to auscultation without rhonchi, wheezes, rales
CARDIAC Regular rate and rhythm, no edema.
ABDOMINAL Soft, there is tenderness to the epigastrium. No distention. Abdomen is soft
MUSCLES/EXTREMITIES No abnormal range of motion, no swelling.
SKIN Warm, pink and dry. No rashes
NEUROLOGICAL Speech is clear and appropriate. Normal level of consciousness. 5/5 strength in all extremities.
PSYCH Normal mood and affect. Judgement/competence is appropriate
Course
Orders/Labs/Results
Orders:
Orders
01/10/25 14:40
EKG [Electrocardiogram (*1)] Urgent
Reason for Study: Abdominal Pain
EKG- Treatment ONCE
01/10/25 15:39
CT Abd/pelvis W Iv Cont Urgent
Comment:
Reason For Exam: s/p biliary/pancreatic stents, epigastric pain
01/10/25 15:41
0.9% Sodium Chloride 1000 ml [Nss] 1,000 ml IV BOLUS
Ketorolac [Toradol] 15 mg IV NOW STA
01/10/25 15:52
Complete Blood Count/With Diff Urgent
Comprehensive Metabolic Panel Urgent
Lipase Urgent
Troponin I Urgent
01/10/25 18:02
Morphine Sulfate 4 mg IV NOW STA
01/10/25 20:21
Admit/Transfer Patient As Directed
Co-Sign Provider:
Level of Care: Observation services
Assign to:: Medical/Surgical
Physician / Group: Eliecer
Diagnosis: Pancreatitis
Code Status As Directed
Resuscitation Status: Full Code
PRN Pain Medication Management As Directed
May give lesser potent ordered pain med per pt: Yes
preference::
Protocol:: Medication orders for pain may be administered in a
manner that supports deferring to patient preference
when the pt is:
- Requesting an ordered lesser potent pain medication.
Least to most potent pain medications are defined
as: acetaminophen < NSAID < tramadol < opioids
(morphine, oxycodone, hydromorphone).
- Requesting a lesser dose of the same medication IF
ORDERED.
- Requesting a less intrusive route of administration
if both routes are prescribed by the provider (PO <
IV).
01/10/25 20:40
HYDROmorphone [Dilaudid] 0.5 mg IV NOW STA
Abnormal Lab Results
01/10/25
15:52
Glucose 106 H mg/dl
(70-99)
Lipase 323 H U/L
(23-300)
01/10/25 15:52
01/10/25 15:52
Vital Signs
Initial and Last Documented VS:
Initial Vital Signs
Temp Pulse Resp BP Pulse Ox
98.1 F 58 20 143/72 98
01/10/25 14:35 01/10/25 14:35 01/10/25 14:35 01/10/25 14:35 01/10/25 14:35
Last Documented Vital Signs
Temp Pulse Resp BP Pulse Ox
98.1 F 56 14 149/72 96
01/10/25 14:35 01/10/25 19:45 01/10/25 19:45 01/10/25 19:00 01/10/25 19:45
*Pulse Oximetry
SaO2: 98
Oxygen Mode of Delivery: Room air
Patient hypoxic: no
*Critical Care Note
Total Time (30-74mins, 75-104mins- exclusive of procedures): Not Applicable
ED Attending Note
-
Portions of this chart may have been created with voice recognition software.� Occasional wrong word or��sound alike� substitutions may have occurred due to the inherent limitations of voice recognition software.
Discharge Plan
Departure
Patient Disposition: Admit
Date of Disposition: 01/10/25
Time of Disposition: 20:07
Presentation/result/management discussed w/ accepting MD/DO: Hospitalist
Discharge Problem:
Pancreatitis
Prescriptions:
No Action
Theragen Tablet
1 tab PO DAILY
ibuprofen [Advil] 200 mg Tablet
400 mg PO DAILYPRN PRN (Reason: mild pain)
simethicone [Gas-X] 80 mg Tablet,Chewable
80 mg PO DAILYPRN PRN (Reason: gas pains)
red yeast rice 600 mg Capsule
600 mg PO DAILY
cholecalciferol (vitamin D3) [Vitamin D3] 25 mcg (1,000 unit) Tablet
25 mcg PO DAILY
omega 9-kst-yph-fish oil [Fish Oil] 1,000 (120-180) mg Capsule
1 cap PO DAILY
Referrals:
Nhi Arana CRNP [Family Provider, General]
Interventions
Interventions:
*Risk Screen - Suicide Last Done: 01/10/25 14:35
*General Assessment Last Done: 01/10/25 15:45
*Neglect/Abuse Screening Last Done: 01/10/25 14:42
*ED- Fall Risk Assessment Last Done: 01/10/25 15:45
*ED COVID-19 Vaccine History Last Done: 01/10/25 15:45
*ED Influenza Vaccine History Last Done: 01/10/25 15:45
HR-Rsksul-Isgciydvjn Assessment Last Done: 01/10/25 15:45
Discharge Date and Time
Print Language: MALAY
[2025-01-10] MEDS: NSS 1000 IV (16:01)
[2025-01-10 16:03] LABS: Hematocrit 37.7 % (37.0-47.0); Hemoglobin 12.6 g/dL (12.0-16.0); Mean Corp Hgb Conc. 33.4 g/dL (33.0-37.0); Mean Corpuscular Volume 86.5 fL (81.0-99.0); Nucleated Red Blood Cells % 0 %; Platelet Count 244 10^3/uL (130-400); Red Cell Dist. Width 13.2 % (11.5-14.5)
[2025-01-10] MEDS: TORADOL 15 MG IV (16:05)
[2025-01-10 16:13] LABS: ALT (SGPT) 25 U/L (0-35); AST (SGOT) 25 U/L (14-36); Albumin 4.1 g/dl (3.5-5.0); Alkaline Phosphatase 95 U/L (38-126); Blood Urea Nitrogen 16 mg/dl (7-17); Calcium 9.2 mg/dl (8.4-10.2); Carbon Dioxide 28 mmol/L (22-30); Chloride 107 mmol/L (98-107); Glucose 106 mg/dl (70-99); Lipase 323 U/L (23-300); Potassium 4.0 mmol/L (3.5-5.1); Sodium 140 mmol/L (135-145); Total Protein 7.0 g/dl (6.3-8.2); eGFR > 60.00
[2025-01-10 16:24] LABS: Troponin I < 0.012 ng/ml
[2025-01-10] MEDS: MORPHINE SULFATE 4 MG IV (18:19)
--- NOTE | 2025-01-10 20:13 | HPS.HSE ---
Family Physician
-
Family Physician: Nhi Arana
Chief Complaint
-
Abdominal pain
History of Present Illness
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
with GI and ERCP on January 06.
Patient went for the procedure due to generalized pain and suspicion of sphincter of Oddi dysfunction on 01 06. She had a history of remote ERCP and had mildly elevated LFTs with mild today dilated CBD. Normal LFTs during pain-free intervals. The
ERCP showed the prior biliary sphincterotomy appeared stenosed. Thick walled pancreatic plastic stent was placed into the ventral pancreatic duct with plans for removal in 3 to 4 weeks.
Since the procedure, patient reports that she has had episodes of severe epigastric pain radiating to her back that comes in waves and last for few minutes before resolution. She denies any shortness of breath. She denies diaphoresis. She denies
any radiation to her arms jaws or neck. Patient denies any nausea or vomiting and she has had no diarrhea. He has no fevers or chills.
The Emergency Department she was afebrile, blood pressure was 154/75 with a pulse rate of 59 and she was satting 100% on room air. ECG showed sinus bradycardia at a rate of [address] or T wave changes troponin was negative. Lipase
was elevated at 313, LFTs were normal. CBC completely normal. Electrolytes BUN/creatinine were normal.
CT of the abdomen pelvis showing that the stents present within the, bile duct and pancreatic duct with acid and small volume pneumobilia. She is status post cholecystectomy. No other acute findings.
Medical History
Past Medical History
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
Past Surgical History: Reports Cholecystectomy
Social History
Unable to obtain full social history at this time due to: Dementia
Tobacco: Non-smoker
Alcohol: None
Drug: None
Personal:
Living: With Family
Family History
Family History: Not pertinent
Allergies / Home Medications
Allergies reflects when Allergies were last updated in [employer].
Home Medications with original date entered in [employer]
Allergy/Medication List:
Allergies
Allergy/AdvReac Type Severity Reaction Status Date / Time
Sulfa (Sulfonamide Allergy Rash Verified 01/10/25 16:25
Antibiotics)
tramadol Allergy achy Verified 01/10/25 16:25
Home Medications
cholecalciferol (vitamin D3) 25 mcg (1,000 unit) tablet (Vitamin D3) 50 mcg PO DAILY Supplement 11/15/22
calcium carbonate (Tums) 400 mg PO DAILYPRN PRN indigestion 02/12/24
ibuprofen 200 mg tablet (Advil) 200 mg PO Q6HPRN PRN mild pain 02/12/24
omega-3 fatty acids 1,000 mg PO NOON Supplement 02/12/24
red yeast rice 600 mg tablet 1,200 mg PO BID Supplement 02/12/24
therapeutic multivitamin 1 tab PO NOON Supplement 02/12/24
valacyclovir 500 mg tablet 500 mg PO PRN PRN infection prophylaxis 02/12/24
acetaminophen 325 mg tablet 650 mg (2 x 325 mg) PO Q4HPRN PRN mild pain/MCNEAL/temp> 100.4F #100 tabs 10/27/24
Review of Systems
-
Constitutional: Reports No Symptoms
EENT: Reports No Symptoms
Respiratory: Reports No Symptoms
Cardiac: Reports No Symptoms
Abdomen/GI: Reports Abdominal Pain
: Reports No Symptoms
Musculoskeletal: Reports No Symptoms
Skin: Reports No Symptoms
Neurological: Reports No Symptoms
Endocrine: Reports No Symptoms
Hematologic/Lymphatic: Reports No Symptoms
Psych: Reports No Symptoms
Physical Exam
Vital Signs
Vital Signs
Temp Pulse Resp BP Pulse Ox
98.1 F 59 12 154/75 100
01/10/25 14:35 01/10/25 18:00 01/10/25 18:00 01/10/25 18:00 01/10/25 16:15
Physical Exam
General: No Apparent Distress
HEENT: NormoCephalic and Anicteric
Respiratory: No Clear
Cardiac: S1/S2 and Regular Rhythm
GI: Soft, Non Tender and Non Distended
Rectal: Deferred by Provider
Genito-urinary: Deferred by me
Musculoskeletal: No Clubbing, No Cyanosis and No Edema
Neuro: AO x 3
Psych: Calm
Laboratory Results
-
01/10/25 15:52
01/10/25 15:52
Laboratory Results
Total Bilirubin 0.4 mg/dl (0.2-1.3) 01/10/25 15:52
AST 25 U/L (14-36) 01/10/25 15:52
ALT 25 U/L (0-35) 01/10/25 15:52
Alkaline Phosphatase 95 U/L (38-126) 01/10/25 15:52
Troponin I < 0.012 ng/ml 01/10/25 15:52
Lipase 323 U/L (23-300) H 01/10/25 15:52
Data Reviewed
-
CT Scan: Report Reviewed by me
Medical Tests (Nuc Med, Echo, EKG etc): Image Personally Visualized and interpreted
Lab Data: Labs Reviewed by me
Old Records: Reviewed
Impression/Plan
-
IMPRESSION:
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
abdominal pain without nausea vomiting or diarrhea since the procedure. No suggestions of findings consistent with a cardiac process. Lipase is slightly elevated to greater than 300. LFTs otherwise normal. CT scan shows patent pancreatic and,
biliary duct stents with small amounts of pneumobilia likely secondary to the procedure. Suspect mild post ERCP pancreatitis.
PLAN:
Pancreatitis -post ERCP
-Admit to MedSurg observation
-Clear liquid diet as tolerated
-Pain control, antiemetics as needed
-IV fluids at 150 mL an hour
-Advance diet as tolerated
-Trend LFTs for now
-Will hold off on GI consult unless symptoms worsen
DVT prophylaxis�Lovenox subcu
CODE STATUS�full code
[2025-01-10] MEDS: DILAUDID 0.5 MG IV ×2 (20:54→23:06)
--- NOTE | 2025-01-10 21:38 | PTCARENOTE ---
Pt arrived onto floor @2137. Pt AAOx3 and able to ambulate into room without assistance. Pt with no complaints of pain or SOB at this time. Pt oriented to room and call hanson; will continue to monitor
[2025-01-10] MEDS: LR 1000 IV (22:16)
[2025-01-11] MEDS: LR 1000 IV ×3 (05:11→23:53)
[2025-01-11 07:05] VITALS: BP 143/69
[2025-01-11] MEDS: TORADOL 10 MG IV (07:27)
[2025-01-11 08:28] LABS: Hematocrit 34.5 % (37.0-47.0); Hemoglobin 11.2 g/dL (12.0-16.0); Mean Corp Hgb Conc. 32.5 g/dL (33.0-37.0); Mean Corpuscular Volume 88.5 fL (81.0-99.0); Platelet Count 202 10^3/uL (130-400); Red Cell Dist. Width 13.8 % (11.5-14.5)
[2025-01-11 08:58] LABS: ALT (SGPT) 23 U/L (0-35); AST (SGOT) 25 U/L (14-36); Albumin 3.3 g/dl (3.5-5.0); Alkaline Phosphatase 84 U/L (38-126); Blood Urea Nitrogen 12 mg/dl (7-17); Calcium 8.5 mg/dl (8.4-10.2); Carbon Dioxide 27 mmol/L (22-30); Chloride 108 mmol/L (98-107); Estimated Creatinine Clearance 94 ml/min; Glucose 87 mg/dl (70-99); Lipase 117 U/L (23-300); Potassium 4.3 mmol/L (3.5-5.1); Sodium 139 mmol/L (135-145); Total Protein 5.9 g/dl (6.3-8.2); eGFR > 60.00
--- NOTE | 2025-01-11 09:15 | CON.GI ---
Addendum entered and electronically signed by Brittany Campoverde MD 01/11/25 20:47:
I saw and examined the patient.
The IN STORE BANKER or PA's note was reviewed and I agree with the note.
Comment: 64-year-old female with history of previous cholecystectomy for choledocholithiasis status post ERCP, stent placement, history of total abdominal hysterectomy for endometrial cancer, presented in January 2024 with substernal/epigastric
pain at that time, elevated LFTs and biliary ductal dilation noted on imaging. She did subsequently had endoscopy ultrasound that did not show any abnormality in the common duct. She was again admitted in September with epigastric pain on and off
distention with elevated LFTs-she had endoscopic ultrasound again that did not show any evidence of sludge or stone, then followed up with Dr. Torre as outpatient. She did have another ERCP for abdominal pain, elevated LFTs and suspected sphincter of
oddi dysfunction on 01/06/2025, prior biliary sphincterotomy site appeared to be stenosed, mildly dilated common duct, pancreatic stent placed into the ventral pancreatic duct, bile duct sludge found and removed. 1 plastic stent was placed to the
common bile duct. Since after ERCP, she reports intermittent epigastric pain, was asked by Dr. Torre to come into the emergency room. In the ER, LFTs and lipase were unremarkable. CT scan of the abdomen and pelvis did not show any evidence of
pancreatitis with patent stents noted.
- Epigastric pain status post ERCP with sphincterotomy and biliary/pancreatic plastic stent placement
No evidence of post ERCP pancreatitis
Could be discomfort related to sphincter of Oddi dysfunction versus edema related to recent ERCP
Currently discomfort seems to be better but not resolved completely.
Tolerating full liquid diet. Will add Bentyl to see if it helps with the discomfort.
Will follow
Original Note:
Consultation
-
Date/Time Consultation Requested: 01/10/250
Date/Time Consultation Performed: 01/21/25 2915
Requesting Provider: tammy Gonzáles MD
Performing Provider: FABRICE Salazar, Brittany Campoverde MD
Reason for Consultation: abdominal pain
Medical History
Chief Complaint / HPI
Chief Complaint: abdominal pain
History of Present Illness:
Pt is a 64yo with hx prior floirnda many years ago with post -op ERCP for stone removal with stent placement, hyperlipidemia,[place]RIA for endometrial CA, colon polyps, diverticulitis with several DH admission in January 2024. At that time she had
multiple diagnostic studies CTA with no aneurysm or dissection, CT with diverticulosis, renal cysts no obstructive uropathy. US with concern for CBD distention from prior florinda CT no acute process or duct dilation and MRCP with distention of
proximal to mid CBD distal tapering of unclear etiology. 5 tiny foci in panc tail concern for IPMN need follow up MRI 6-12 months. She then proceeded for EUS 02/13/24 with no pathology in panc head, body or tail, ampulla or left lobe of liver.
Etiology ? stone vs other. She was seen in follow with Dr. Mills with LFT's improved with alk phos 143 otherwise normal labs on 03/30/24. She called in July with recurrent pain with bili 0.6, AST 63, ALT 139 and alk phos 224. She then
presented in September with recurrent pain with leg and epigastric pain. During that admission she had WBC up to 21,000, with rise in LFT's after admission to bili 6.1, AST 300, ALT 315, alk phos 318. MRI was completed with stable prominent CBD, stable
tiny panc cysts without She went for repeat EUS with dilation of CBD up to 7 mm, sludge in CBD, hypocheoic stranding of pancreas no pathology of ampulla. She had follow up with Dr. Torre in November and feeling well and was set up for elective ERCP
on 01/06 with concern for prior sphincterotomy with stenosis/narrowing with dilation of CBD with sphincterotomy and CBD dilation. A biliary sphincterotomy was performed. biliary tree swept with sludge. One pancreatic and CBD stent placed. She
now represents for pain post procedure with lipase peak 325 with normal LFT's and WBC's and stable CT with pneumobilia but no pancreatitis.
In review with patient she admits to recurrent episode of pain post procedure. Pain was getting worse after several days but now some improvement today. Pain was epigastric with some chest pain with severity of pain. She had one episode of
diarrhea but not recurrent. She otherwise denies any dysphagia, GERD, nausea, vomiting constipation or bleeding.
Past Medical History
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
Past Surgical History: Cholecystectomy (with post -op ERCP with stone removal and stent), , Gynecological (breast Bx, D+c, ANDRIA) and Other (lumpectomy)
Social History
Tobacco: Non-Smoker
Alcohol: None
Drug: None
Personal:
Living: With Family
Employment: Retired
Family History
Family History: Reviewed & Not Pertinent
Allergies / Home Medications
Allergy/AdvReac Type Severity Reaction Status Date / Time
Sulfa (Sulfonamide Allergy Rash Verified 01/10/25 16:25
Antibiotics)
tramadol Allergy achy Verified 01/10/25 16:25
�Medication �Instructions �Recorded
cholecalciferol (vitamin D3) 25 25 mcg PO DAILY 01/10/25
mcg (1,000 unit) tablet (Vitamin
D3)
ibuprofen 200 mg tablet (Advil) 400 mg PO DAILYPRN PRN mild pain 01/10/25
omega 4-jrh-ufq-fish oil 1,000 mg 1 cap PO DAILY 01/10/25
(120 mg-180 mg) capsule (Fish Oil)
red yeast rice 600 mg capsule 600 mg PO DAILY 01/10/25
simethicone 80 mg chewable tablet 80 mg PO DAILYPRN PRN gas pains 01/10/25
therapeutic multivitamin 1 tab PO DAILY 01/10/25
Review of Systems
-
History Source: Patient
Constitutional: Reports No Symptoms
EENT: Reports No Symptoms
Cardiac: Reports Chest Pain
Abdomen/GI: Reports Abdominal Pain
Musculoskeletal: Reports No Symptoms
Skin: Reports No Symptoms
Neurological: Reports No Symptoms
Endocrine: Reports No Symptoms
Hematologic/Lymphatic: Reports No Symptoms
Vital Signs
Temp Pulse Resp BP Pulse Ox
97.9 F 57 16 143/69 97
01/11/25 07:05 01/11/25 07:05 01/11/25 07:05 01/11/25 07:05 01/11/25 07:05
Physical Exam
Exam
General: Well Developed, Well Nourished and No Apparent Distress
HEENT: Normocephalic and Other (jaundice )
Respiratory: Clear
Cardiac: Regular Rhythm
GI: Soft, Non Distended and Tender (minimal without guarding or rebound )
Musculoskeletal: No Cyanosis
Skin: Warm and Dry
Neuro: Awake, Alert and AO x 3
Psych: Calm
Results
WBC 6.2 10^3/uL (4.8-10.8) 01/11/25 06:36
Hgb 11.2 g/dL (12.0-16.0) L 01/11/25 06:36
Hct 34.5 % (37.0-47.0) L 01/11/25 06:36
MCV 88.5 fL (81.0-99.0) 01/11/25 06:36
Plt Count 202 10^3/uL (130-400) 01/11/25 06:36
Absolute Neuts (auto) 5.2 10^3/uL (1.4-6.5) 01/10/25 15:52
Sodium 139 mmol/L (135-145) 01/11/25 06:36
Potassium 4.3 mmol/L (3.5-5.1) 01/11/25 06:36
Chloride 108 mmol/L (98-107) H 01/11/25 06:36
Carbon Dioxide 27 mmol/L (22-30) 01/11/25 06:36
BUN 12 mg/dl (7-17) 01/11/25 06:36
Creatinine 0.7 mg/dL (0.6-1.0) 01/11/25 06:36
Calcium 8.5 mg/dl (8.4-10.2) 01/11/25 06:36
Total Bilirubin 0.5 mg/dl (0.2-1.3) 01/11/25 06:36
AST 25 U/L (14-36) 01/11/25 06:36
ALT 23 U/L (0-35) 01/11/25 06:36
Alkaline Phosphatase 84 U/L (38-126) 01/11/25 06:36
Lipase 117 U/L (23-300) 01/11/25 06:36
Diagnostic Image Results:
01/10/25 CT Abd/pelvis W Iv Cont
No acute findings in the abdomen or pelvis.
Stents are present within the common bile duct and pancreatic duct. There is associated small volume pneumobilia.
Cholecystectomy.
Colonic diverticulosis
10/25/24 MRI with and without contrast
Stable mild prominence of the proximal common bile duct without evidence for filling defects or strictures. No overt MR evidence for malignancy.
Grossly stable scattered tiny pancreatic cyst without suspicious features, possibly pseudocysts and/or side branch intraductal papillary mucinous neoplasms. Recommend follow-up MRI/MRCP abdomen without and with gadolinium contrast in one year per
ACR criteria.
02/12/24 CT Abd/Pel (IV only)-DH only
No acute inflammatory process within the abdomen or pelvis.
Diverticulosis without acute diverticulitis. No bowel obstruction.
Stable renal cysts. No obstructive uropathy.
Prior cholecystectomy.
Mild hepatomegaly.
No intrahepatic or extrahepatic biliary ductal dilatation, as suggested on ultrasound.
02/12/24 US Abdomen Complete/Upper
Slightly distended common bile duct (8 mm), and questionable mild intrahepatic duct dilatation. Findings may be related to prior cholecystectomy. CT may be considered as initial step for further evaluation, followed by MRCP if indicated.
02/12/24 MRCP
There is mild distention of the proximal to mid common bile duct. Distally, the common bile duct abruptly tapers. Cause for this is not identified on this exam. It could be related to postinflammatory or malignant distal common bile duct stricture
(particularly given the history of abnormal serum bilirubin). Consider ERCP for further evaluation
Approximate 5 tiny bright T2 signal foci in the pancreatic tail. These are probably related to intraductal papillary mucinous neoplasia. Follow-up MRI abdomen/MRCP in 6-12 months recommended for reevaluation
No acute inflammatory process in the abdomen
02/12/24 CT Chest Angio W/wo Iv Contras
No aortic aneurysm or dissection.
Prior GI Procedures:
EGD: ? years ago wtih ERCP
ERCP 25 years ago for CBD stone
01/06/25- ERCP Dr. Torre
- Prior biliary sphincterotomy appeared stenosed or narrowed.
- The common bile duct was mildly dilated.
- One pancreatic plastic stent was placed into the ventral
pancreatic duct.
- A biliary sphincterotomy was performed.
- The biliary tree was swept and sludge was found.
- One plastic stent was placed into the common bile duct.
Colonoscopy: 12/2022- - One 7 mm polyp in the proximal sigmoid colon,
removed with a hot snare. Resected and retrieved.
- One 10 mm polyp in the distal sigmoid colon, removed
with a hot snare. Resected and retrieved.
- Diverticulosis in the sigmoid colon and in the
descending colon.
- Internal hemorrhoids.
- The examination was otherwise normal.
bx inflammatory polyp
02/13/24 EUS
- There was no sign of significant pathology in the
pancreatic head, pancreatic body and pancreatic tail.
- There was no sign of significant pathology in the
common bile duct.
- There was no sign of significant pathology in the
ampulla.
- There was no evidence of significant pathology in
the left lobe of the liver.
- No specimens collected.
10/26/24- EUS Dr. Torre
There was dilation in the common bile duct which measured up to 7
mm.
- Hyperechoic material consistent with sludge was visualized
endosonographically in the common bile duct.
- Pancreatic parenchymal abnormalities consisting of hyperechoic
strands were noted in the pancreatic head and pancreatic body.
- There was no sign of significant pathology in the ampulla.
- There was no evidence of significant pathology in the left lobe
of the liver.
- No specimens collected.
Assessment / Plan
-
Pt is a 64yo with hx prior florinda many years ago with post -op ERCP for stone removal with stent placement, hyperlipidemia,[place]RIA for endometrial CA, colon polyps, diverticulitis with several admission with epigastric pain with elevated LFT's and
stable lipase. She had several EUS's and noted pancreatic cysts but went for elective ERCP on 01/06 with concern for prior sphincterotomy with stenosis/narrowing with dilation of CBD with sphincterotomy and CBD dilation. A biliary sphincterotomy
was performed. biliary tree swept with sludge. One pancreatic and CBD stent placed. She now represents for pain post procedure with lipase peak 325 with normal LFT's and WBC's and stable CT with pneumobilia but no pancreatitis.
-epigastric pain post ERCP with sphincterotomy, biliary sludge and stent placement
-recurrent episodes of abdominal pain with increased LFTs wiith several admission
-pancreatic cysts
-hx florinda 25 years ago with post-op ERCP with stone removal and stents
other med problems:
-endometrial CA s/p hysterectomy
-hx colon polyps- inflammatory
-diverticulosis/diverticulitis
PLAN:
Etiology of pain post procedure related to inflammation or spasm-- pt with improving pain but lipase [address] does not meet criteria for pancreatitis
pt already feeling better
clear diet advance as tolerated to low fat
cont IVF at 100ml/hr
pain control per hospitalist team
message into office to arrange repeat EGD with stent removal 3-4 weeks
family updated
-
-
Thank you for consultation and allowing me to participate in the patient's care. Please call the subcontracts manager GI physician during the after hours with any questions or concerns.
--- NOTE | 2025-01-11 10:54 | CM ---
Patient seen bedside w/ spouse, initial assessment completed. Patient is a 64-year-old with past medical history significant for diverticulitis, endometrial cancer, prior history of sphincter of of dysfunction with prior biliary sphincterectomy who
presents to the emergency department with ongoing abdominal pain.
Patient resides w/ spouse in [facility], 3 steps to enter from the outside. Patient is independent in all areas, no DME reported. No SNF/HC hx reported.
Patient is a retired teacher. Has 2 supportive children.
Address, point of contact and insurance verified
PCP: Nhi Arana
Pharmacy: [facility]
Patient admitted under obs services. OOBS form verbally reviewed, copy provided, copy on chart
Patient and spouse concerned about obs admission as patient was directed to come to ER by her doctor and was experiencing pain. CM shared a medical van driver reviews hospitalization records every day and will determine if inpatient criteria is met to
be changed to an inpatient admission. Patient stated she would like for that to be changed and to speak w/ someone about how it might affect her Medicare part A.
TT to MD to review patient chart
Plan: Home, no needs likely
[2025-01-11] MEDS: DILAUDID 0.5 MG IV ×2 (12:28→19:58)
--- NOTE | 2025-01-11 13:22 | W.PN.HOSP.TC ---
Today's Communication/Plan
-
Assessment / Plan
Assessment / Plan
NAD
Scleral Anicteric
MMM
No JVD
CTABL
RRR, S1/S2
Soft, NT, ND, BS+
Warm, Dry
AAOx3
Calm
Intractable abdominal pain likely secondary to sphincter spasm. Per GI lipase 325 no radiographic evidence of pancreatitis though symptomatology consistent
Continue IV analgesics with Dilaudid and Toradol
IV fluids
Clear liquid diet, advance as tolerated to low residue
Vitamin D deficiency
Continue colecalciferol
Anticipated Discharge: Within 24 hours
Subjective/Interval History
-
Date of Service: January 11, 2025
Seen and Examined. No new complaints. No acute overnight events
Abd pain improving
on CLD
Objective Data
-
Labs:
Laboratory Results
01/11/25
06:36
WBC 6.2
Hgb 11.2 L
Hct 34.5 L
Plt Count 202
Sodium 139
Potassium 4.3
Chloride 108 H
Carbon Dioxide 27
BUN 12
Creatinine 0.7
Glucose 87
Calcium 8.5
Total Bilirubin 0.5
AST 25
ALT 23
Alkaline Phosphatase 84
Vital Signs:
Vital Signs
Temp Pulse Resp BP Pulse Ox
97.9 F 57 16 143/69 97
01/11/25 07:05 01/11/25 07:05 01/11/25 07:05 01/11/25 07:05 01/11/25 07:05
I&O
01/10/25 01/11/25 01/12/25
06:59 06:59 06:59
Intake Total 1240 / 1240
Balance 1240 / 1240
[2025-01-11 16:01] VITALS: BP 154/76
[2025-01-11 23:00] VITALS: BP 145/78
[2025-01-12 07:05] VITALS: BP 143/76
[2025-01-12] MEDS: BENTYL 10 MG PO (08:45)
--- NOTE | 2025-01-12 09:14 | W.PN.GI.CBS2 ---
Today's Communication / Plan
-
Etiology of pain post procedure related to inflammation or spasm- not pancreatitis with normal imaging and lipase stable
feeling better today
tolerating diet
return to ER for recurrent severe pain
bentyl PRN as needed
pt instructed to call office for setting up stent removal
all questions answered
reviewed with Dr. Chase
Assessment / Plan
-
Pt is a 64yo with hx prior florinda many years ago with post -op ERCP for stone removal with stent placement, hyperlipidemia,[place] for endometrial CA, colon polyps, diverticulitis with several admission with epigastric pain with elevated LFT's and
stable lipase. She had several EUS's and noted pancreatic cysts but went for elective ERCP on 01/06 with concern for prior sphincterotomy with stenosis/narrowing with dilation of CBD with sphincterotomy and CBD dilation. A biliary sphincterotomy
was performed. biliary tree swept with sludge. One pancreatic and CBD stent placed. She now represents for pain post procedure with lipase peak 325 with normal LFT's and WBC's and stable CT with pneumobilia but no pancreatitis.
-epigastric pain post ERCP with sphincterotomy, biliary sludge and stent placement
-recurrent episodes of abdominal pain with increased LFTs wiith several admission
-pancreatic cysts
-hx florinda 25 years ago with post-op ERCP with stone removal and stents
other med problems:
-endometrial CA s/p hysterectomy
-hx colon polyps- inflammatory
-diverticulosis/diverticulitis
PLAN:
Etiology of pain post procedure related to inflammation or spasm- not pancreatitis with normal imaging and lipase stable
feeling better today
tolerating diet
return to ER for recurrent severe pain
bentyl PRN as needed
pt instructed to call office for setting up stent removal
all questions answered
Subjective
Subjective
Date of Service: January 12, 2025
low fat diet, no stools feeling better minimal pain after eating this am
Objective
Data Reviewed
Laboratory Data:
Laboratory Results
01/11/25 06:36
01/11/25 06:36
Laboratory Results
Total Bilirubin 0.5 mg/dl (0.2-1.3) 01/11/25 06:36
AST 25 U/L (14-36) 01/11/25 06:36
ALT 23 U/L (0-35) 01/11/25 06:36
Alkaline Phosphatase 84 U/L (38-126) 01/11/25 06:36
Lipase 117 U/L (23-300) 01/11/25 06:36
Vital Signs and I&O:
Vital Signs
Temp Pulse Resp BP Pulse Ox
98.1 F 64 16 143/76 95
01/12/25 07:05 01/12/25 07:05 01/12/25 07:05 01/12/25 07:05 01/12/25 07:05
I&O
01/11/25 01/12/25 01/13/25
06:59 06:59 06:59
Intake Total 1240 / 1240 1680 / 1680
Balance 1240 / 1240 1680 / 1680
Physical Exam
Physical Exam
HEENT: Anicteric and Moist mucous membranes
Cardiology: Normal Sinus Rhythm
Pulmonary: Clear
GI: Soft, Non Distended and Non Tender
Extremities: No Edema
Neuro: Non Focal
--- NOTE | 2025-01-12 09:30 | W.DCSUMMARY ---
Discharge Summary
Discharge Data
Date of Admission: 01/10/25
Date of Discharge: 01/12/25
-
Pending Results: No
Hospital Course
64-year-old with past medical history significant for diverticulitis, endometrial cancer, prior history of sphincter of of dysfunction
Presented with intractable abdominal pain and epigastric tightness without radiation to the back. Concern for pancreatitis. Lipase was low but CT did not demonstrate evidence of pancreatitis. Evaluated by GI. Believed likely to be spasm of the
sphincter of oddi opposed to pancreatitis. Received IV fluids and IV analgesics. Started on a clear liquid diet advance as tolerated. Started on as needed dicyclomine for spasm and will be prescribe as needed for abdominal spasm/pain. Will need
continued outpatient GI follow-up.
CT Abdomen and pelvis
IMPRESSION:
No acute findings in the abdomen or pelvis.
Stents are present within the common bile duct and pancreatic duct. There is associated small volume pneumobilia.
Cholecystectomy.
Colonic diverticulosis.
Seen and examined on the day of discharge which was 01/12
No new compalints
No acute ovenright events
Tolerating diet well
Cleared by GI for DC
NAD
Scleral Anicteric
MMM
No JVD
CTABL
RRR, S1/S2
Soft, NT, ND, BS+
Warm, Dry
AAOx3
Calm
More than 30 minutes spent in discharge including
Final examination of the patient
Summarizing hospital stay
Instructions for continuing care to all relevant caregivers
Preparation of discharge records, prescriptions, and referral forms
Total time spent (in minutes): 31
Discharge Plan
-
Patient Disposition: Home (Routine Discharge)
Discharge Diagnosis/Procedures: Intractable abdominal pain
?Sphincter of Oddi spasm
Condition: Good
Diet: As tolerated and Low Residue
Activity: As tolerated
Activity Restrictions/Additional Instructions:
Presented with intractable abdominal pain and epigastric tightness without radiation to the back. Concern for pancreatitis. Lipase was low but CT did not demonstrate evidence of pancreatitis. Evaluated by GI. Believed likely to be spasm of the
sphincter of oddi opposed to pancreatitis. Received IV fluids and IV analgesics. Started on a clear liquid diet advance as tolerated. Started on as needed dicyclomine for spasm and will be prescribe as needed for abdominal spasm/pain. Will need
continued outpatient GI follow-up.
CT Abdomen and pelvis
IMPRESSION:
No acute findings in the abdomen or pelvis.
Stents are present within the common bile duct and pancreatic duct. There is associated small volume pneumobilia.
Cholecystectomy.
Colonic diverticulosis.
Referrals:
Augustine Torre MD [Active, Gastroenterology]
Referral Note: call Dr. Torre's office to arrange follow up for stent removal. Will need repeat MRI in september 2025 for pancreatic cysts
Nhi Arana CRNP [Family Provider, General]
Prescriptions:
New
dicyclomine 10 mg Capsule
10 mg PO DAILYPRN PRN (Reason: abdominal pain) Qty: 15 0RF
Continued
therapeutic multivitamin Tablet
1 tab PO DAILY
ibuprofen [Advil] 200 mg Tablet
400 mg PO DAILYPRN PRN (Reason: mild pain)
simethicone 80 mg Tablet,Chewable
80 mg PO DAILYPRN PRN (Reason: gas pains)
red yeast rice 600 mg Capsule
600 mg PO DAILY
cholecalciferol (vitamin D3) [Vitamin D3] 25 mcg (1,000 unit) Tablet
25 mcg PO DAILY
omega 8-oqh-vch-fish oil [Fish Oil] 1,000 (120-180) mg Capsule
1 cap PO DAILY
Discharge Orders:
Discharge Patient (As Directed); Ordered 01/12/25
Ordered By: Calderon Chase
Discharge Date and Time
Print Language: FAROESE
--- NOTE | 2025-01-12 10:04 | CM ---
Patient will d/c home today. CM reviewed LOC status w/ MD yesterday, per MD patient does not qualify for inpatient admission. Hospitalist confirmed no dx or tx that meets inpatient.
No CM needs at this time
Plan: Home today, no needs
== END 2025-01-12 10:01 | disposition home or self-care (01) | DRG 445 ==
LOC: 4 WEST ACU 09:32
PROVIDERS: Emergency Medicine; ADMITTING PHYSICIAN Internal Medicine; ATTENDING PHYSICIAN Hospitalist; CONSULT PHYSICIAN Internal Medicine Gastroenterology; EMERGENCY PHYSICIAN Emergency Medicine; FAMILY PHYSICIAN Nurse Practitioner Adult Health
DX: K83.4 Spasm of sphincter of Oddi (principal); K86.2 Cyst of pancreas; Z85.42 Personal history of malignant neoplasm of other parts of uterus; Z86.0100 Personal history of colon polyps, unspecified; Z90.49 Acquired absence of other specified parts of digestive tract; F03.90 Unspecified dementia, unspecified severity, without behavioral disturbance, psychotic disturbance, mood disturbance, and anxiety; Z88.2 Allergy status to sulfonamides; Z88.5 Allergy status to narcotic agent; B00.1 Herpesviral vesicular dermatitis; E78.00 Pure hypercholesterolemia, unspecified; Z82.49 Family history of ischemic heart disease and other diseases of the circulatory system; Z90.710 Acquired absence of both cervix and uterus
CPT/HCPCS: 74177; 80053; 82248; 83690; 84484; 85025; 85027; 87070; 93005; 96361; 96374; 96375; 99285; Q9967

== ENCOUNTER 2025-02-01 06:09 | Day surgery (SDC) | payer BC, SELFPAY ==
[2025-02-01 08:32] VITALS: BMI 34.8
[2025-02-01 08:33] VITALS: BP 125/76; BMI 34.8
[2025-02-01 10:33] VITALS: BP 120/66
[2025-02-01 10:45] VITALS: BP 127/72
[2025-02-01 11:00] VITALS: BP 133/70
== END 2025-02-01 12:00 | disposition home or self-care (01) ==
LOC: GI 06:09
PROVIDERS: ATTENDING PHYSICIAN Internal Medicine Gastroenterology
DX: Z46.59 Encounter for fitting and adjustment of other gastrointestinal appliance and device (principal)
CPT/HCPCS: 43247